=== PATIENT | male | born 1980 | race Caucasian/White ===

== ENCOUNTER 2023-07-23 19:32 | Outpatient (OUT) | payer BC, SELFPAY | END 2023-07-23 19:33 | disposition home or self-care (01) | LOC: SLEEP 19:32 | PROVIDERS: PCP Internal Medicine; Visit Provider Internal Medicine | DX: G47.33 Obstructive sleep apnea (adult) (pediatric) (principal) ==

== ENCOUNTER 2023-08-07 20:49 | Outpatient (OUT) | payer BC, SELFPAY ==
--- OUTSIDE RECORDS SUMMARY | 2023-08-07 20:52 | XMS_ITS | CCD ---
Author Name Unknown Address [address] [place] [address] Organization [facility] Care Team Providers Care Hydraulic Controls Technician Name Role Phone PCP, NONE Unavailable Unavailable JONAS BLEDSOE Unavailable Unavailable ROZINA CHAMBERLAIN Attending Unavailable CHARLES CUEVA Referring Unavailable CHARLES CUEVA Primary Care Unavailable Charles Cueva DO Primary Care Provider [phone] Medications Current Medications Medication Drug Class(es) Dates Sig (Normalized) Sig (Original) amitriptyline hydrochloride 10 mg oral tablet (1 source) Tricyclic Antidepressant Start: 08-07-2023 amitriptyline (ELAVIL) 10 mg tablet Indications: Fibromyalgia One capsule at 8 PM each night 30 tablet 5 08/07/2023 Active Start: 08-07-2023 amitriptyline (ELAVIL) 10 mg tablet Indications: Fibromyalgia One capsule at 8 PM each night 30 tablet 5 08/07/2023 Active fluticasone propionate 0.05 mg/actuat metered dose nasal spray (1 source) Corticosteroid fluticasone propionate (FLONASE) 50 mcg/actuation nasal spray Administer into each nostril daily. 0 Active ibuprofen 200 mg oral capsule (1 source) Nonsteroidal Anti-inflammatory Drug ibuprofen 200 mg capsule Take 800 mg by mouth. 0 Active loratadine 10 mg oral tablet (1 source) loratadine (CLARITIN) 10 mg tablet phentermine hydrochloride 37.5 mg oral capsule (1 source) Sympathomimetic Amine Anorectic Start: 023 take 1 capsule by mouth once daily before breakfast phentermine 37.5 MG capsule Indications: Morbid obesity (CMS-HCC) Take 1 capsule (37.5 mg total) by mouth every morning before breakfast. 30 capsule 0 07/19/2023 Active tiZANidine 2 mg oral tablet (1 source) Central alpha-2 Adrenergic Agonist Start: tiZANidine (ZANAFLEX) 2 mg tablet Indications: Fibromyalgia One tab at 8:00 p.m.each night 30 tablet 5 08/07/2023 Active Start: 08-07-2023 tiZANidine (ZA NAFLEX) 2 mg tablet Indications: Fibromyalgia One tab at 8:00 p.m.each night 30 tablet 5 08/07/2023 Active Problems Active Problems Problem Classification Problem Date Documented Date Episodic/Chronic Esophageal disorders (1 source) Gastro-esophageal reflux disease with esophagitis; Translations: [GERD with esophagitis] Onset: 03-04-2019 06-14-2023 Chronic Esophageal disorders (1 source) Esophageal disorders Onset: 12-03-2017 Nonspecific chest pain (1 source) Chest pain, unspecified; Translations: [Chest pain, unspecified] Onset: 12-03-2017 Episodic Other connective tissue disease (1 source) Fibromyalgia; Translations: [Fibromyalgia] Onset: 08-07-2023 Episodic Other connective tissue disease (2 sources) Fibromyalgia; Translations: [Fibromyalgia] Onset: 08-07-2023 08-07-2023 Episodic Other non-traumatic joint disorders (1 source) Pain in unspecified joint; Translations: [Pain in unspecified joint] Onset: 08-07-2023 Episodic Other non-traumatic joint disorders (2 sources) Multiple joint pain; Translations: [Pain in unspecified joint] Onset: 08-07-2023 08-07-2023 Episodic Other upper respiratory disease (1 source) Allergic rhinitis; Translations: [Allergic rhinitis, unspecified] Onset: 03-11-2016 06-14-2023 Chronic Residual codes; unclassified (1 source) Obstructive sleep apnea syndrome; Translations: [Obstructive sleep apnea (adult) (pediatric)] Onset: 02-18-2019 06-14-2023 Chronic Unclassified (1 source) Sleep apnea, unspecified / G47.30(ICD-10) Onset: 12-03-2017 Unclassified (2 sources) Nicotine dependence, cigarettes, uncomplicated / F17.210(ICD-10) Onset: 12-03-2017 Unclassified (2 sources) Chest pain, unspecified / R07.9(ICD-10) Onset: 12-03-2017 Unclassified (1 source) Morbid (severe) obesity due to excess calories / E66.01(ICD-10) Onset: 12-03-2017 Unclassified (1 source) Other chest pain / R07.89(ICD-10) Onset: 12-03-2017 Unclassified (1 source) Allergic rhinitis, unspecified / J30.9(ICD-10) Onset: 12-03-2017 Unclassified (1 source) 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 / Z79.899(ICD-10) Onset: 12-03-2017 Unclassified (1 source) Body mass index (BMI) 45.0-49.9, adult / Z68.42(ICD-10) Onset: 12-03-2017 Past or Other Problems Problem Classification Problem Date Documented Da te Episodic/Chronic Malaise and fatigue (1 source) Fatigue; Translations: [Other fatigue] Onset: 03-09-2016 06-14-2023 Episodic Mood disorders (1 source) Mood disorders Onset: 07-19-2023 07-19-2023 Other connective tissue disease (1 source) Internal impingement of right shoulder; Translations: [Impingement syndrome of right shoulder] Onset: 07-18-2019 06-14-2023 Episodic Other connective tissue disease (1 source) Right rotator cuff syndrome; Translations: [Unspecified rotator cuff tear or rupture of right shoulder, not specified as traumatic] Onset: 07-18-2019 06-14-2023 Episodic Syncope (1 source) Syncope and collapse; Translations: [Syncope and collapse] Onset: 04-05-2016 06-14-2023 Episodic Results Test Name Value Interpretation Reference Range Facility OBSOLETEon 02-12-2020 OBSOLETE Refill (FAMA) -------- ABISAI TORIBIO ([id number]) 1980 M Date Time Provider Department 02/12/20 [facility] BAILEY) [facility] During your visit today, we recorded the following information about you: Nemo Heaton [facility] 02/12/2020 8:53 AM Signed Patient has been identified by name and date of : Yes Pending Prescriptions Disp Refills CYCLOBENZAPRINE 10 MG TABLET 10 tablet 0 Sig: Take 1 tablet by mouth at bedtime as needed for up to 10 days. DELFINA: No BUSPIRONE 5 MG TABLET 90 tablet 0 Sig: Take 1 tablet by mouth three times daily as needed (For anxiety). DELFINA: No RX INSTRUCTIONS: Patient aware RX will be sent to pharmacy. No need to notify patient. Nemo Heaton [facility] Kitty Bailey PA-C 02/12/2020 9:20 AM Signed Med filed. Please schedule f/u. GREGG Rowan [facility] 02/12/2020 1:43 PM Signed Left message for patient to return call. Please advise of below message. Rachelle Trish [facility] 02/12/2020 2:01 PM Signed Patient returned call and was notified of written directive He expressed clear understanding and wcb to schedule appointment Allergies As of Date: 02/12/2020 (No Known Allergies) Date Reviewed: 12/02/2019 Reviewed by: Angie Bailey (Pa) - Fully Assessed Reason for Visit: Refill Request [94] Visit Diagnoses:Internal impingement of right shoulder [M75.41] Rotator cuff syndrome of right shoulder [M75.101] Anxiety [F41.9] Order(s):cyclobenzaprine (FLEXERIL) 10 mg tabletTake 1 tablet by mouth at bedtime as needed for up to 10 days.Disp: 10 tabletRfl: 0 busPIRone (BUSPAR) 5 mg tabletTake 1 tablet by mouth three times daily as needed (For anxiety).Disp: 90 tabletRfl: 0 Prescriptions as of 02/12/2020 Sig: CYCLOBENZAPRINE 10 MG TABLET Take 1 tablet by mouth at bed* BUSPIRONE 5 MG TABLET Take 1 tablet by mouth three * DIPHENHYDRAMINE-ANTACID- LIDOC* Take 5-10 mL by mouth three t* IBUPROFEN 200 MG CAPSULE Take 800 mg by mouth. PANTOPRAZOLE 40 MG TABLET,DEL* Take 1 tablet by mouth once d* Patient not taking: Reported on 08/12/2019 RANITIDINE 150 MG TABLET Take 150 mg by mouth daily at* FLONASE NASAL Use in the nose once daily. Problem List As Of Date 02/12/2020 Noted Resolved ISRRAEL (obstructive sleep apnea) [G47.33] 02/18/2019 GERD with esophagitis [K21.0] 03/04/2019 SOB (shortness of breath) [R06.02] 03/24/2019 Internal impingement of right shoulder [M75.41] 07/18/2019 Rotator cuff syndrome of right shoulder [M75.10*07/18/2019 Prescriptions ordered this encounter Disp Refills Start End CYCLOBENZAPRINE 10 MG TABLET 10 t* 0 02/12/2020 02/22/2020 Route: ORAL Sig: Take 1 tablet by mouth at bedtime as needed for up to 10 days. BUSPIRONE 5 MG TABLET 90 t* 0 02/12/2020 Route: ORAL Sig: Take 1 tablet by mouth three times daily as needed (For anxiety). Medications Discontinued During This Encounter cyclobenzaprine (FLEXERIL) 10 mg tab* 10 t* 0 11/30/2019 02/12/2020 Route: ORAL Sig: Take 1 tablet by mouth at bedtime as needed for up to 10 days. Disc: Reason for discontinue is not on file. busPIRone (BUSPAR) 5 mg tablet 90 t* 0 12/02/2019 02/12/2020 Route: ORAL Sig: Take 1 tablet by mouth three times daily as needed (For anxiety). Disc: Reason for discontinue is not on file. Encounter Status:Closed by ANGIE BAILEY on 02/12/20 [facility] PROGRESSon 12-02-2019 PROGRESS HNO ID: [id number] Author: Angie Braswell) Service: ? Author Type: Physician Loader [employer] Type: Progress Notes Filed: 12/02/2019 11:53 AM Note Text: This Team Access Model visit is a phone encounter. It required patient-provider interaction for the medical decision making as documented below. HPI: Concerns with anxiety. States he gets very anxious, irritable. Has worsened since COVID pandemic, had to get daughter tested for COVID, not working like usual, staying home. States he has gotten so worked up that he got dizzy and almost passed out. Has had issues with anxiety in the past, states he was prescribed something by his PCP in [place], daily medication, does not remember what it was. Chart review reveals prior Buspar and Ativan Rx from PCP, similar episodes described in 2016. Remembers that Buspar worked well and he would take it as needed for panic attacks. Plan to restart today. Has consults to [facility] and psychiatry if medication does not help as expected or if he would like additional support. Denies SI/HI. Exam: No camera available. Able to speak in full sentences in no apparent distress, is appropriate, normal speech and judgment. A/P: 1. Anxiety- restart Buspar TID PRN, he remembers he had success with this in the past. Consults previously placed to [facility] and psychiatry. Encouraged to gather these resources in case he would like additional support. He is agreeable to this plan, f/u as needed. All questions answered. I spent 25 minutes in the visit, with more than 50% of the total time of the visit in counseling / coordination of care. Angie Bailey PA-C [facility] 11-30-2019 [facility] -------- ABISAI TORIBIO ([id number]) 1980 M Date Time Provider Department 11/30/19 ANGIE BAILEY) [facility] During your visit today, we recorded the following information about you: Kitty Bailey PA-C 11/30/2019 2:23 PM Signed Was not able to document in previous telephone encounter. Please let patient know that I have sent the medications that were prescribed by Dr. Salcido in the winter for his shoulder pain. One is an anti-inflammatory that can be taken daily as prescribed- he should not take any other NSAIDs while taking this including ibuprofen, Motrin, Aleve, Advil, etc. The muscle relaxer (Flexeril) can be taken as needed at night, may cause drowsiness, do not take before driving. Can also use ice for discomfort and should try to do the stretches and exercises that he learned at PT. GREGG Rowan RN 11/30/2019 2:28 PM Signed Unable to contact patient, left message to call back. Angie Perez 11/30/2019 3:36 PM Signed Call received and message given. Had contacted Dr Medina office and mediation had already been sent. Made a phone appointment as request for anxiety. Allergies As of Date: 11/30/2019 (No Known Allergies) Date Reviewed: 08/12/2019 Reviewed by: Suha Manrique - Fully Assessed Reason for Visit: Patient Update [1234] Prescriptions as of 11/30/2019 Sig: CYCLOBENZAPRINE 10 MG TABLET Take 1 tablet by mouth at bed* DICLOFENAC SODIUM 75 MG TABLE* Take 1 tablet by mouth twice * DIPHENHYDRAMINE-ANTACID- LIDOC* Take 5-10 mL by mouth three t* IBUPROFEN 200 MG CAPSULE Take 800 mg by mouth. PANTOPRAZOLE 40 MG TABLET,DEL* Take 1 tablet by mouth once d* Patient not taking: Reported on 08/12/2019 RANITIDINE 150 MG TABLET Take 150 mg by mouth daily at* FLONASE NASAL Use in the nose once daily. Problem List As Of Date 11/30/2019 Noted Resolved ISRRAEL (obstructive sleep apnea) [G47.33] 02/18/2019 GERD with esophagitis [K21.0] 03/04/2019 SOB (shortness of breath) [R06.02] 03/24/2019 Internal impingement of right shoulder [M75.41] 07/18/2019 Rotator cuff syndrome of right shoulder [M75.10*07/18/2019 Encounter Status:Closed by JESSICA CHOI on 11/30/19 Normal [facility] Group A Strep by PCRon 08-13 GAS Specimen Source Throat Swab Normal [facility] Comment on above: Performed By: #### G ASPCR ####[facility] [address] [place], [place] [phone] Group A Strep PCR Negative Normal [facility] Comment on above: Result Comment: This test was developed and its performance characteristics determined by [facility]'s [facility] [place] ([facility]). It has not been cleared or approved by the FDA. [facility] is regulated under CLIA as qualified to perform high complexity testing. This test is used for clinical purposes. It should not be regarded as investigational or for research. Performed By: #### G [facility] ####[facility] [place], [place] [phone] CNOVon 08-12-2019 CNOV Office Visit (EXPM[facility] ) -------- ABISAI TORIBIO ([id number]) 1980 M Date Time Provider Department 08/12/19 5:10 PM LUZ MARINA TURNER (AYE) [facility] During your visit today, we recorded the following information about you: Temperature Pulse Blood pressure Weight 98 degrees 65/minute 120/80 149.7 kg Luz Marina Turner APRN.CNP 08/12/2019 6:59 PM Signed Subjective The history is provided by the patient. Sore Throat This is a new problem. The current episode started yesterday. The problem has been gradually worsening. The pain is worse on the left side. There has been no fever. The pain is moderate. Associated symptoms include congestion, ear pain (left ear), swollen glands and trouble swallowing. Pertinent negatives include no abdominal pain, coughing, diarrhea, shortness of breath or vomiting. He has had exposure to strep and mono. He has tried acetaminophen for the symptoms. The treatment provided mild relief. PAST MEDICAL HISTORY Diagnosis Date - HTN (hypertension) - Migraine - Sleep apnea Review of Systems Constitutional: Negative for chills, diaphoresis, fever and malaise/fatigue. HENT: Positive for congestion, ear pain (left ear), sinus pain, sore throat and trouble swallowing. Respiratory: Negative for cough, shortness of breath and wheezing. Gastrointestinal: Negative for abdominal pain, blood in stool, constipation, diarrhea, nausea and vomiting. Skin: Negative. BP 120/80 (BP Site: Right Arm, BP Position: Sitting, BP Cuff Size: Large Adult) Pulse 65 Temp 36.7 ?C (98 ?F) (Temporal) Wt (!) 149.7 kg (330 lb) SpO2 96% BMI 43.54 kg/m? Objective Physical Exam Constitutional: He is oriented to person, place, and time and well-developed, well-nourished, and in no distress. HENT: Head: Normocephalic and atraumatic. Right Ear: Tympanic membrane, external ear and ear canal normal. Left Ear: Tympanic membrane, external ear and ear canal normal. Nose: Nose normal. Mouth/Throat: Mucous membranes are normal. Posterior oropharyngeal edema and posterior oropharyngeal erythema present. No oropharyngeal exudate or tonsillar abscesses. Neck: Normal range of motion. Neck supple. Cardiovascular: Normal rate, regular rhythm and normal heart sounds. Pulmonary/Chest: Effort normal and breath sounds normal. Abdominal: Soft. Bowel sounds are normal. Musculoskeletal: Normal range of motion. Neurological: He is alert and oriented to person, place, and time. Skin: Skin is warm and dry. ASSESSMENT/PLAN: 1. Sore throat - ICD9: 462, ICD10: J02.9 - Discussed supportive care treatment with fluids, rest and analgesia. - RAPID STREP TEST B/O negative - GROUP A STREPTOCOCCUS BY PCR - DIPHENHYDRAMINE-ANTACID- LIDOCAINE ([facility]) Encourage icy/popsicles salt water gargles Patient instructed to follow up with their primary care provider or to return if symptoms don't improve or worsens Discharge instructions given verbally and printed for patient and/or family who verbalized understanding. Luz Marina Turner APRN.AYE Turner APRN.AYE 08/12/2019 5:55 PM Signed How can I tell if my sore throat is caused by a virus or strep throat?It is hard to tell the difference. But there are some clues to look for. People who have a sore throat caused by a virus usually have other symptoms, such as: ?A runny nose ?A stuffed-up chest ?Itchy or red eyes ?Cough ?A raspy (hoarse) voice ?Pain in the roof of the mouth People who have a sore throat caused by strep throat do not usually have a cough, runny nose, or itchy or red eyes. But they might have: ?Severe throat pain ?Fever (temperature higher than 100.4?F or 38?C) ?Swollen glands in the neck What can I do to feel better?If you want some relief from the pain of sore throat, you can take pain medicine over the counter such as tylenol or motrin.. Throat sprays such as chloraseptic, sucking on cough drops or candy may sooth the pain. Some people feel relief if they gargle with salt water. Referring Provider: SELF [200] Allergies As of Date: 08/12/2019 (No Known Allergies) Date Reviewed: 08/12/2019 Reviewed by: Suha Manrique - Fully Assessed Reason for Visit: Sore Throat [200] Cmt: 2 days Ear Pain [817] Cmt: left Primary Visit Diagnosis:Sore throat [J02.9] Order(s):RAPID STREP TEST B/O [3457178] Order #: [id number] GROUP A STREPTOCOCCUS BY PCR [SQGASPCR] Order #: [id number] kaimqmjtlyAJPER-priwtn-r idocaine (BMX 1:1:1) 1:1:1 liqdTake 5-10 mL by mouth three times daily.Disp: 120 BottleRfl: 0 Prescriptions as of 08/12/2019 Sig: FLONASE NASAL Use in the nose once daily. DIPHENHYDRAMINE-ANTACID- LIDOC* Take 5-10 mL by mouth three t* IBUPROFEN 200 MG CAPSULE Take 800 mg by mouth. PANTOPRAZOLE 40 MG TABLET,DEL* Take 1 tablet by mouth once d* Patient not taking: Reported on 08/12/2019 RANITIDINE 150 MG TABLET Take 150 mg by mouth daily at* Problem List As Of Date 08/12/2019 Noted Resolved ISRRAEL (obstructive sleep apnea) [G47.33] 02/18/2019 GERD with esophagitis [K21.0] 03/04/2019 SOB (shortness of breath) [R06.02] 03/24/2019 Internal impingement of right shoulder [M75.41] 07/18/2019 Rotator cuff syndrome of right shoulder [M75.10*07/18/2019 Other instructions from your clinician: How can I tell if my sore throat is caused by a virus or strep throat?It is hard to tell the difference. But there are some clues to look for. People who have a sore throat caused by a virus usually have other symptoms, such as: ?A runny nose ?A stuffed-up chest ?Itchy or red eyes ?Cough ?A raspy (hoarse) voice ?Pain in the roof of the mouth People who have a sore throat caused by strep throat do not usually have a cough, runny nose, or itchy or red eyes. But they might have: ?Severe throat pain ?Fever (temperature higher than 100.4?F or 38?C) ?Swollen glands in the neck What can I do to feel better?If you want some relief from the pain of sore throat, you can take pain medicine over the counter such as tylenol or motrin.. Throat sprays such as chloraseptic, sucking on cough drops or candy may sooth the pain. Some people feel relief if they gargle with salt water. Prescriptions ordered this encounter Disp Refills Start End DIPHENHYDRAMINE-ANTACID- LIDOCAINE (C* 120 * 0 08/12/2019 Route: ORAL Sig: Take 5-10 mL by mouth three times daily. Disposition: Return if symptoms worsen or fail to improve. Follow-up and Disposition History Recorded Encounter Status:Closed by LUZ MARINA TURNER on 08/12/19 [facility] PROGRESSon 08-12-2019 PROGRESS HNO ID: [id number] Author: Luz Marina Turner Service: ? Author Type: Nurse Practitioner Type: Progress Notes Filed: 08/12/2019 6:59 PM Note Text: Subjective The history is provided by the patient. Sore Throat This is a new problem. The current episode started yesterday. The problem has been gradually worsening. The pain is worse on the left side. There has been no fever. The pain is moderate. Associated symptoms include congestion, ear pain (left ear), swollen glands and trouble swallowing. Pertinent negatives include no abdominal pain, coughing, diarrhea, shortness of breath or vomiting. He has had exposure to strep and mono. He has tried acetaminophen for the symptoms. The treatment provided mild relief. PAST MEDICAL HISTORY Diagnosis Date - HTN (hypertension) - Migraine - Sleep apnea Review of Systems Constitutional: Negative for chills, diaphoresis, fever and malaise/fatigue. HENT: Positive for congestion, ear pain (left ear), sinus pain, sore throat and trouble swallowing. Respiratory: Negative for cough, shortness of breath and wheezing. Gastrointestinal: Negative for abdominal pain, blood in stool, constipation, diarrhea, nausea and vomiting. Skin: Negative. BP 120/80 (BP Site: Right Arm, BP Position: Sitting, BP Cuff Size: Large Adult) Pulse 65 Temp 36.7 ?C (98 ?F) (Temporal) Wt (!) 149.7 kg (330 lb) SpO2 96% BMI 43.54 kg/m? Objective Physical Exam Constitutional: He is oriented to person, place, and time and well-developed, well-nourished, and in no distress. HENT: Head: Normocephalic and atraumatic. Right Ear: Tympanic membrane, external ear and ear canal normal. Left Ear: Tympanic membrane, external ear and ear canal normal. Nose: Nose normal. Mouth/Throat: Mucous membranes are normal. Posterior oropharyngeal edema and posterior oropharyngeal erythema present. No oropharyngeal exudate or tonsillar abscesses. Neck: Normal range of motion. Neck supple. Cardiovascular: Normal rate, regular rhythm and normal heart sounds. Pulmonary/Chest: Effort normal and breath sounds normal. Abdominal: Soft. Bowel sounds are normal. Musculoskeletal: Normal range of motion. Neurological: He is alert and oriented to person, place, and time. Skin: Skin is warm and dry. ASSESSMENT/PLAN: 1. Sore throat - ICD9: 462, ICD10: J02.9 - Discussed supportive care treatment with fluids, rest and analgesia. - RAPID STREP TEST B/O negative - GROUP A STREPTOCOCCUS BY PCR - DIPHENHYDRAMINE-ANTACID- LIDOCAINE ([facility]) Encourage icy/popsicles salt water gargles Patient instructed to follow up with their primary care provider or to return if symptoms don't improve or worsens Discharge instructions given verbally and printed for patient and/or family who verbalized understanding. Luz Marina Turner APRN.LEAD TEACHER Normal [facility] PROGRESSon 07-18-2019 PROGRESS HNO ID: [id number] Author: Ajith Salcido Service: ? Author Type: Physician Type: Progress Notes Filed: 07/18/2019 3:22 PM Note Text: [facility]ate [facility] DEPARTMENT OF SPORTS MEDICINE [facility] Sports Medicine Note: Pt is a 39 year old male here for right shoulder pain. He is accompanied by: no one. He c/o burning and stinging pain about the anterior, posterior and lateral aspect of approximately 1 week duration. Mechanism of injury: no known injury Pain is 10/10 in severity at rest, with pain escalating to 10/10 at its worst. The pain is exacerbated by overhead activities, reaching and sleeping. Pain is relieved with ice. He denies proximal radiation. He complains of distal radiation to the fingers He reports numbness or tingling. He denies popping, clicking, catching, grinding, or instability. Previous treatments have included xray, OTC medicaiton, ice/heat and chiropractor. He reports swelling and warmth. Medications tried (Including anti-inflammatories): ibuprofen Prior injury: none Occupation: teacher Activity levels: recreational Has trouble with sleeping bc of pain at night. He has had chiropractic treatment, ice has helped sx. Pain located anterior, lateral and posterior, radiates down the arm. Sweats at night. Patient's problem list, history, social history reviewed and updated in [facility]. PAST MEDICAL HISTORY Diagnosis Date - HTN (hypertension) - Migraine - Sleep apnea Social History Tobacco Use - Smoking status: Current Some Day Smoker Types: Cigarettes - Smokeless tobacco: Never Used - Tobacco comment: Occasional cigarette Substance Use Topics - Alcohol use: Not Currently Frequency: Never - Drug use: Never FAMILY HISTORY Problem Relation Age of Onset - Diabetes Mother - Diabetes Maternal Grandmother CABG age 60's - Diabetes Maternal Grandfather - Cancer Maternal Grandfather 70 colon - Cancer Paternal Grandfather 60 colon - other (colon polyps) Father - other (colon polyps) Brother There were no vitals taken for this visit. Review Of Systems GENERAL:No weight loss, malaise or fevers HEENT:Negative for frequent or significant headaches, No changes in hearing or vision, no nose bleeds or other nasal problems NECK:Negative for lumps, goiter, pain and significant neck swelling RESPIRATORY: Negative for cough, hemoptysis, wheezing or shortness of breath CARDIOVASCULAR: Negative for chest pain, leg swelling or palpitations GASTROINTESTINAL: No nausea, vomiting, or diarrhea GENITOURINARY: No history of dysuria, frequency or incontinence MUSCULOSKELETAL: See HPI NEUROLOGIC:See HPI SKIN:Negative for lesions, rash, and itching PSYCHIATRIC: Negative for sleep disturbance, mood disorder and recent psychosocial stressors. HEMATOLOGIC/LYMPHATIC/IM MUNOLOGIC:Negative for prolonged bleeding, bruising easily or swollen nodes Physical Exam: General: Appears stated age, well built, in no apparent distress. Psychiatric: Mood and affect appropriate. Alert and oriented x 3 without evidence of abnormal respiratory effort. Musculoskeletal Exam: Gait and Station WNL. Neck: FROM without pain, no TTP over spinous processes, strength 5/5 with neck rotation b/l. Spurlings' test negative. Inspection: No deformity, no muscular atrophy, no ecchymosis. Palpation: No TTP over the clavicle, acromion, AC or SC joint. Mild TTP over supraspinatus attachment. No TTP over bicipital groove. ROM: 175/T4/50 b/l. Strength: 4/5 on R with abduction, 5/5 on R. Special: Mild pain with empty Can on R, negative speeds, arreaga, Neers, Inman's, apprehension. Risks, benefits, alternatives and personnel discussed with patient who consents to proceed with a right shoulder subacrominal corticosteroid injection. After a time out, the right shoulder was prepped in the usual sterile manner. A mixed solution of 4 cc of 1% lidocaine +1 cc of Kenalog 40 mg per cc was instilled into the subacromial space. The patient tolerated the procedure well and was given verbal and offered written post injection instructions. I believe I addressed the patient's concerns and questions to his satisfaction prior to leaving the office today. Ajith Salcido MD ASSESSMENT/PLAN: 1. Internal impingement of right shoulder - ICD9: 726.2, ICD10: M75.41 (primary diagnosis) Personal review of x-rays does not reveal any abnormality, patient's nighttime pain along with some weakness with shoulder abduction is consistent with rotator cuff tendinosis, I believe a little bit of bursitis, because he's having trouble with sleeping at night we did provide an injection for him today to the subacromial bursa, also provided anti-inflammatory medications to be taken twice daily, will avoid chronic use because of GERD, will take for 3 weeks. Also provided with muscle relaxer to take at night as needed before bed, he understands he can make him sleepy and not to take it before driving or operating machinery. Patient will follow-up in the office in 3-4 weeks, consider advanced diagnostic imaging of symptoms are not improved - CONSULT TO PHYSICAL THERAPY - CYCLOBENZAPRINE 10 MG TABLET - DICLOFENAC SODIUM 75 MG TABLET,DELAYED RELEASE 2. Rotator cuff syndrome of right shoulder - ICD9: 726.10, ICD10: M75.101 - CONSULT TO PHYSICAL THERAPY - CYCLOBENZAPRINE 10 MG TABLET - DICLOFENAC SODIUM 75 MG TABLET,DELAYED RELEASE 3. GERD with esophagitis - ICD9: 530.11, ICD10: K21.0 Avoid nsaids Ajith Salcido MD Normal [facility] XR SHLDR >/=3V AP/GRACE AP/OTH R RTon 07-18-2019 XR SHLDR >/=3V AP/GRACE AP/OTHR RT * * *Final Report* * * DATE OF EXAM: Jul 18 2019 2:47PM AEX [id number] - XR SHLDR >/=3V AP/GRACE AP/OTHR RT / PROCEDURE REASON: ACUTE PAIN RT AHOULDER * * * * Physician Interpretation * * * * RIGHT SHOULDER:3 views 07/18/2019 Indication: Acute pain. No injury. Narrowed acromioclavicular joint. Glenohumeral articulation is normal in width. No erosive changes, fracture or dislocation and no soft tissue calcification to indicate calcific tendinosis. Imaged right ribs are intact. IMPRESSION: No acute bony abnormality. Degenerative change acromioclavicular joint. Hand I Thermal Cutter: MICHELLE Transcribe Date/Time: Jul 18 2019 2:49P Dictated by : LAURENT WOOTEN MD This examination was interpreted and the report reviewed and electronically signed by: LAURENT WOOTEN MD on Jul 18 2019 2:51PM EST [id number] [facility] CNPElma 03-28-2019 CNPN Telephone (CARDBD) -------- ABISAI TORIBIO ([id number]) 1980 M Date Time Provider Department 03/28/19 DEANNE SARAHGERALD JACKSON During your visit today, we recorded the following information about you: Jean Painter 03/28/2019 9:45 AM Signed Fax received from [facility] Re: Holter report Copy placed in nurse folder Copy sent for scanning Reece Mckeon RN 03/28/2019 10:19 AM Signed Holter 03/24/19 IMPRESSIONS AND FINDINGS: The rhythm was sinus/sinus arrhythmia with brief periods of sinus tachycardia. Maximum HR 120 bpm. Minimum HR 41 bpm. Average 67 bpm. Rare ventricular ectopy in isolation. Rare supraventricular ectopics as singles. A run of atrial/supraventricular tachycardia was the longest at 4 beats and the fastest at rate 150 bpm. Patient listed no symptoms in diary. Event marker not utilized. Reece Epstein, CAITLIN ?03/27/19 ?Hookup Date: 20190324 ?Hookup Time: [id number] ? Recording Duration: 19046 S ? Minimum Heart Rate: 41 BPM ? Minimum Heart Rate Date/Time: 20190325 [id number] ? Maximum Heart Rate: 120 BPM ? Maximum Heart Rate Date/Time: 20190325 [id number] ? Average Heart Rate: 67 BPM ? Longest RR: 1.528 S ? Longest RR DATE/TIME: [id number] ?QRS complexes: 50589 ? Ventricular Ectopics: 28 ? Ventricular Isolated Beats: 28 ? Ventricular Bigeminal Cycles: 0 ? Ventricular Couplets: 0 ? Ventricular Runs: 0 ?Ventricular Beats in Runs: 0 ?Supraventricular Ectopics: 84 ?Supraventricular Isolated Beats: 76 ?Supraventricular Couplets: 0 ?Supraventricular Runs: 2 ? Supraventricular Beats in Runs: 8 ? Longest Supraventricular Run Date/Time: 20190324 ?Fastest Supraventricular Run, Date/Time: 20190324 Message left for pt with results of Holter monitor which was normal. Pt was in sinus rhythm/sinus tach during monitoring. No abnormal heart rhythms. Few beningn early heart beats(PVC's and PAC;'s). Pt had no symptoms while wearing monitor. Will have Dr Simon review. Will call if there are any further recommendations. Reece Simon MD [facility] 03/28/2019 6:08 PM Signed Agree with recommendations communicated to the patient. No further recommendations at this time. Sarah Simon MD [facility] Allergies As of Date: 03/28/2019 (No Known Allergies) Date Reviewed: 03/24/2019 Reviewed by: Reece Mckeon RN - Fully Assessed Reason for Visit: Results [95] Prescriptions as of 03/28/2019 Sig: PERFLUTREN LIPID MICROSPHERES* Inject 1.3 mL intravenously a* IBUPROFEN 200 MG CAPSULE Take 800 mg by mouth. PANTOPRAZOLE 40 MG TABLET,DEL* Take 1 tablet by mouth once d* ZYRTEC-D ORAL Take by mouth once daily. RANITIDINE 150 MG TABLET Take 150 mg by mouth daily at* FLONASE NASAL Use in the nose once daily. Problem List As Of Date 03/28/2019 Noted Resolved ISRRAEL (obstructive sleep apnea) [G47.33] INVALID FOR* GERD with esophagitis [K21.0] INVALID FOR* SOB (shortness of breath) [R06.02] INVALID FOR* Encounter Status:Closed by REECE MCKEON RN on 03/28/19 [facility] 03-24-2019 CNNURSE Nurse Visit (CARDBD) -------- ABISAI TORIBIO ([id number]) 1980 M Date Time Provider Department 03/24/19 1:15 PM NURSE CARD [facility] CARDBD During your visit today, we recorded the following information about you: Ryan Genao, RN, RN 03/24/2019 1:25 PM Signed HOLTER MONITOR PROCEDURE: Chest is cleansed with alcohol Skin prep applied Electrodes place on chest and stress loops secured with tape Fresh battery inserted in monitor Holter monitor secured to patient with waist or shoulder straps Serial number [id number] Patient instructed 1.) Diary documentation 2.) Usage of event button 3.) Maintenance and care of monitor 4.) Safety issues with monitor 5.) Return unit in 24 hours or 48 hours 6.) Call with problems [phone] Patient expresses good verbal understanding of instructions Ryan Genao, RN Referring Provider: SARAH SIMON [[id number]] Allergies As of Date: 03/24/2019 (No Known Allergies) Date Reviewed: 03/24/2019 Reviewed by: Reece Mckeon RN - Fully Assessed Reason for Visit: Holter Monitor Application [261] Visit Diagnoses:SOB (shortness of breath) [R06.02] Chest pain, atypical [R07.89] Order(s):HOLTER MONITOR 24 HOUR [9114232] Order #: [id number] Prescriptions as of 03/24/2019 Sig: PERFLUTREN LIPID MICROSPHERES* Inject 1.3 mL intravenously a* IBUPROFEN 200 MG CAPSULE Take 800 mg by mouth. PANTOPRAZOLE 40 MG TABLET,DEL* Take 1 tablet by mouth once d* ZYRTEC-D ORAL Take by mouth once daily. RANITIDINE 150 MG TABLET Take 150 mg by mouth daily at* FLONASE NASAL Use in the nose once daily. Problem List As Of Date 03/24/2019 Noted Resolved ISRRAEL (obstructive sleep apnea) [G47.33] INVALID FOR* GERD with esophagitis [K21.0] INVALID FOR* SOB (shortness of breath) [R06.02] INVALID FOR* Encounter Status:Closed by RYAN GENAO on 03/24/19 Normal [facility] CNOVon 03-24-2019 CNOV Office Visit (CARDBD ) -------- ABISAI TORIBIO ([id number]) 1980 M Date Time Provider Department 03/24/19 11:20 AM SARAH SIMON During your visit today, we recorded the following information about you: Pulse Blood pressure Weight Height 61/minute 134/78 149.7 kg 1.854 m Sarah Simon MD [facility] 03/24/2019 12:45 PM Signed [facility] [place] Department of Cardiovascular Medicine SECTION OF REGIONAL CARDIOLOGY At [facility] OUTPATIENT VISIT DATE March 24, 2019 OUTPATIENT VISIT TYPE New Patient Abisai Toribio [address] [facility] [address] [phone] (home) PRIMARY CARE PHYSICIAN: Kitty Bailey PA-C [id number] [facility] [id number] Consultation requested by Kitty Bailey PA-C for an opinion regarding Abisai Toribio My final recommendations will be communicated back to the requesting physician by way of shared Medical record or letter to requesting physician via US mail. CC: chest pain and shortness of breath HISTORY OF PRESENT ILLNESS: Abisai Toribio is a 38 year old year old male here today for chest pain and shortness of breath. History of atypical chest pain, GERD, LVH sleep apnea and ex-smoker CLINICAL VISITS: 03/24/19;: Referred for evaluation of SOB, rapid heart beat. Thought related to severe apnea. Sees sleep in [place] and thought everything was okay in treatment of sleep apnea. Weight 330, 6'1. Smoke x 20 yrs. 1/2 ppd . Quitting 1 1/2 smoking. Rare episodes of tachycardia. SOB at rest laying down. Sometimes worse with physical activity. 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 Does exercise ( walking) but not on a consistent basis. Reports having a stress test a years. Recommend a Nuclear stress and surface echo Body habitus not conducive to a stress echo Weight hasn't changed much. Less appeitite in 2 months. No change in weight' Compliant with CPAP which he uses nightly. Wakes up gasping for air 2-x a week. Atypical chest pain . Left and right shoulder and neck at rest. Also notes fatigue. Seen by Kitty GALEANA 02/18/19 Concerns of difficulty swallowing and intermittent problems with breathing. States swallowing difficulties have been ongoing x 2 years, getting worse, both solids and liquids. Takes OTC heartburn medication without relief. Was told to f/u with GI last year, but never made appt. Will refer to GI for EGD. Breathing concern- states he feels like he is gasping for air intermittently throughout the day x 2 years, worse in the past 2 months. Feels like the air won't go down or that his airway gives out . Associated with lightheadedness. Happening daily, worse while at rest. Takes 2-3 minutes to recover. Does not feel it is anxiety related. Follows with sleep medicine- was told that this is not related to ISRRAEL. No hx of asthma or COPD. Former smoker, quit 2 weeks ago. Previously was smoking 1/3 PPD x 20 years. Has seen cardiology in [place], last visit about 2 years ago, had stress testing- states they were monitoring a valve and a minor blockage. Would like to reestablish with cardiology, but not at this time. Episodic lightheadedness - HGB A1C; Future - CBC; Future - TSH BLD; Future - COMP METABOLIC PANEL; Future ? Dysphagia, unspecified type - CONSULT TO GASTROENTEROLOGY ? Breathing difficulty ? ISRRAEL (obstructive sleep apnea) ? Screening for lipoid disorders - LIPID PANEL BASIC; Future ? Screening for diabetes mellitus - HGB A1C; Future ? Other orders - Cancel: ALBUMIN/CREAT RATIO RND UR; Future ? - Labs pending. - Appt with GI scheduled for later today. - Will f/u here in 2 weeks to further discuss concerns. Plan to reestablish with cardiology. - HM reviewed. Seen by Kitty GALEANA 03/04/19 Saw GI and underwent EGD on 02/19/19- reflux esophagitis, small hiatal hernia. Was started on Protonix 40mg daily x 8 weeks. States he has not noticed much of a difference or improvement in difficulty swallowing, but is giving medication more time. As far as episodes of gasping for breath, he states he has noticed this has decreased in frequency as well, last episode 3-4 days ago when before it was daily. States overall he is feeling better. Still needs reestablished with cardiology- states his last visit and stress test was 2 years ago, there was potential thickening of one of his valves or heart chavez, he is unsure which. Admits to occasional chest pains x years. Will refer to cardiology so he has a specialist in the area. Risk Factors of this patient are active smoking and Extreme Obesity. PAST MEDICAL HISTORY PAST MEDICAL HISTORY Diagnosis Date - HTN (hypertension) - Migraine - Sleep apnea PAST SURGICAL HISTORY PAST SURGICAL HISTORY Procedure Laterality Date - HERNIA REPAIR HX 2012 SOCIAL HISTORY Social History Socioeconomic History Marital status: Spouse name: Not on file Number of children: 1 Years of education: Not on file Highest education level: Not on file Occupational History Occupation: TEACHER Employer: [employer] Social Needs Financial resource strain: Not on file Food insecurity: Worry: Not on file Inability: Not on file Transportation needs: Medical: Not on file Non-medical: Not on file Tobacco Use Smoking status: Former Smoker Types: Cigarettes Smokeless tobacco: Never Used Substance and Sexual Activity Alcohol use: Not Currently Frequency: Never Drug use: Never Sexual activity: Not on file Lifestyle Physical activity: Days per week: Not on file Minutes per session: Not on file Stress: Not on file Relationships Social connections: Talks on phone: Not on file Gets together: Not on file Attends latter day service: Not on file Active member of club or organization: Not on file Attends meetings of clubs or organizations: Not on file Relationship status: Not on file Intimate partner violence: Fear of current or ex partner: Not on file Emotionally abused: Not on file Physically abused: Not on file Forced sexual activity: Not on file Other Topics Concerns: Not on file Social History Narrative Not on file FAMILY HISTORY FAMILY HISTORY Problem Relation Age of Onset - Diabetes Mother - Diabetes Maternal Grandmother - Diabetes Maternal Grandfather - Cancer Maternal Grandfather 70 colon - Cancer Paternal Grandfather 60 colon - other (colon polyps) Father - other (colon polyps) Brother CURRENT MEDICATIONS Current Outpatient Medications: Ibuprofen 200 mg cap Take 800 mg by mouth. pantoprazole DR (PROTONIX) 40 mg tablet Take 1 tablet by mouth once daily. cetirizine HCl/pseudoephedrine (ZYRTEC-D ORAL) Take by mouth once daily. ranitidine (ZANTAC) 150 mg tablet Take 150 mg by mouth daily at bedtime. fluticasone propionate (FLONASE NASAL) Use in the nose once daily. No current facility-administered medications for this visit. ALLERGIES No Known Allergies REVIEW OF SYSTEMS: Chest pain Yes, occasional midsternal squeezing to sharp upper left shoulder. May radiate to his neck. Can occur with and without exertion lasting 1 minute. Had similar discomfort in 2016 and had normal stress test Shortness of breath Yes, notices that he is grasping for breath when lying down. Also SOB with exertion. He has been using his CPAP regularly. Notes fatigue with exertion. Symptoms began 6 months ago. Bleeding No Dizziness No Syncope Yes, last occurred in 2016. At that time he felt lightheaded. He went to get a drink of water and had syncope. Palpations Yes, described as a fluttering or muscle movement. May occur with heavier exertional activity. Edema None on exam, but notes mild left leg edema at the end of the day 10 systems reviewed and are negative with the exception of pertinent positives described in HPI GENERAL: Negative for: Weight loss or gain, Fever or Chills, Weakness and Sleep difficulties. HEENT: Negative for: Headache, Impaired Vision, Glasses, Hearing Impairment, Ringing in Ears, Nosebleeds, Poor dental care, Bleeding Gums, Dentures NECK: Negative for: Swelling, Pain, Stiffness RESPIRATORY: Negative for: Cough, Blood in Sputum, Shortness of breath, Wheezing, Apnea GASTROINTESTINAL: Negative for: Trouble swallowing, Heartburn, Change in bowel habits, Blood in stool, Dark black stools MUSCULOSKELETAL: Negative for: Muscle or joint pain, Stiffness , Joint swelling NEUROLOGIC/PSYCHIATRIC: Negative for: Weakness, Paralysis, Numbness, Tingling, Tremor, Nervousness, Depressed mood, Memory loss SKIN: Negative for: Rashes, Itching HEMATOLOGICAL/LYMPHATIC: Negative for: Easy bruising , Easy bleeding ENDOCRINE: Negative for: Heat or cold intolerance, Excessive sweating, Frequent urination, Frequent thirst PHYSICAL EXAMINATION: Last 3 Encounter BP Readings: Date: BP: 03/04/2019 130/80 02/19/2019 122/69 02/18/2019 135/79 Last 3 Encounter Wt Readings: Date: Wt: 03/04/2019 151.1 kg (333 lb 3.2 oz) 02/18/2019 149.2 kg (329 lb) 02/18/2019 148.6 kg (327 lb 9.6 oz) Last 3 Encounter Pulse Readings: Date: Pulse: 03/04/2019 63 02/19/2019 60 02/18/2019 62 BP 134/78 Pulse 61 Ht 6' 1 (1.85m) Wt 330 lb (149.7kg) BMI 43.55 kg/(m2). GENERAL: alert, cooperative, pleasant, in no acute distress SKIN: warm, dry, no rash. HEENT: NCAT, sclerae anicteric, oval pharynx clear. NECK: supple, no palpable masses, JVP ~7cm H20, carotids 2+ bilaterally with no carotid bruits. CARDIAC: Regular rate and rhythm with no rubs, murmurs, or gallops CHEST: Normal respiratory efforts, lungs clear to auscultation bilaterally. ABDOMEN: (+) bowel sounds, nontender, nondistended, no hepatosplenomegaly, no abdominal bruits EXTREMITIES: no lower extremity edema bilaterally. DP pulses 2+ bilaterally. Femoral pulses 3+ bilaterally with no bruits. No cyanosis. NEURO: Alert and oriented x 3. Grossly normal. Moves all 4 extremities. CARDIAC TESTING: Echo 04/04/16([facility]) IVSd: 1.2 cm? LVIDd: 3.5 cm ? LVIDs: 2.3 cm ? LVPWd: 0.96 cm FS: 34.5 %? Ao root diam: 3.4 cm ? Ao root area: 8.9 cm2 ? LA dimension: 4.1 cm Doppler Measurements AND Calculations MV E max michaela: 74.5 cm/sec? MV dec time: 0.16 sec MV A max michaela: 62.7 cm/sec MV E/A: 1.2 Ao V2 max: 111.3 cm/sec? LV V1 max P.4 mmHg Ao max P.0 mmHg? LV V1 max: 91.8 cm/sec PA V2 max: 123.5 cm/sec PA max P.1 mmHg Study 2D M-Mode, Doppler and Color Flow with Contrast. The left ventricle is normal in size. Mild asymmetric LVH/increased wall thickness is noted. No LVOT obstruction. A contrast agent was used for left ventricular opacification. Normal left ventricular systolic function is noted. Estimated left ventricular ejection fraction is 60%. No regional wall motion abnormalities noted. The right ventricle is normal in size and function. The left atrium is normal in size. Left Atrial Volume Index 19.4 ml/m2. The right atrium is normal in size. Intact atrial septum. The mitral valve is normal in structure and function. There is no mitral regurgitation noted. The tricuspid valve is normal in structure and function. The aortic valve opens well. The aortic valve is trileaflet. No Aortic Stenosis. No aortic regurgitation is present. The pulmonic valve is normal in structure and function. Trace pulmonic valvular regurgitation. The aortic root is normal size. There is no pericardial effusion. Normal diastolic function. Summary The left ventricle is normal in size. Mild asymmetric LVH/increased wall thickness is noted. A contrast agent was used for left ventricular opacification. Estimated left ventricular ejection fraction is 60%. Normal left ventricular systolic function is noted. Normal diastolic function. No LVOT obstruction. Nuclear Stress Test 04/05/16([facility]) The patient was stressed on a treadmill where they attained a maximum ? heart rate of 174 beats per minute which is 93% of the maximum ? predicted value. No evidence of reversible myocardial ischemia. Low risk for ischemia. ? Carotid Ultrasound 04/04/16([facility]) Right: Plaque with no significant ICA spectral Doppler or color flow disturbances; ICA 86/12 cm/sec.??Antegrade vertebral artery flow. Left: Plaque with no significant ICA spectral Doppler or color flow disturbances; ICA 145/28 cm/sec.??Antegrade vertebral artery flow. Conclusions: BILATERAL:??Plaque without significant stenosis (<50%) of the internal carotid artery.??Antegrade vertebral artery flow. LABS: Cholesterol, Total (mg/dL) Date Value 02/18/2019 164 HDL Cholesterol (mg/dL) Date Value 02/18/2019 34 LDL Cholesterol (mg/dL) Date Value 02/18/2019 98 Triglyceride (mg/dL) Date Value 02/18/2019 158 No results found for: INR Hemoglobin (g/dL) Date Value 02/18/2019 16.7 Hematocrit (%) Date Value 02/18/2019 50.0 WBC (k/uL) Date Value 02/18/2019 5.83 Platelet Count (k/uL) Date Value 02/18/2019 240 No results found for: MG AST (U/L) Date Value 02/18/2019 25 ALT (U/L) Date Value 02/18/2019 33 , No results found for: CK, TSH (uU/mL) Date Value 02/18/2019 0.484 , No results found for: PBNP, Hemoglobin A1C (%) Date Value 02/18/2019 5.3 , Glucose (mg/dL) Date Value 02/18/2019 84 Potassium (mmol/L) Date Value 02/18/2019 4.1 Sodium (mmol/L) Date Value 02/18/2019 139 Chloride (mmol/L) Date Value 02/18/2019 102 CO2 (mmol/L) Date Value 02/18/2019 23 Creatinine (mg/dL) Date Value 02/18/2019 0.85 BUN (mg/dL) Date Value 02/18/2019 13 Anion Gap (mmol/L) Date Value 02/18/2019 14 Calcium (mg/dL) Date Value 02/18/2019 9.6 and No components found for: DIG ASSESSMENT/PLAN: Abisai Toribio 38 year old male was seen today in Cardiology SOB, Chest pain, tachycardia - periods awakening SOB ECHO Stress Nuclear 24 hour monitor PFTs follow up in [place] in 6-8 weeks This note was partially generated using [employer] voice recognition system, and there may be some incorrect words, spellings, and punctuation that were not noted in checking the note before saving. Sarah Simon MD [facility] Department of Cardiovascular Medicine [address] [place] [address]/ [address] [place] [address]. [id number] cc: Kitty Bailey PA-C [id number] [facility] [id number] Sarah Simon MD [facility] 03/24/2019 12:44 PM Signed ECHO Stress Nuclear 24 hour monitor PFTs follow up in [place] 6-8 weeks Sarah Simon MD [facility] Referring Provider: ANGIE BAILEY (KERVIN) [[id number]] Allergies As of Date: 03/24/2019 (No Known Allergies) Date Reviewed: 03/24/2019 Reviewed by: Reece Mckeon RN - Fully Assessed Reason for Visit: Breathing Problem [17] Chest Pain [21] Primary Visit Diagnosis:SOB (shortness of breath) [R06.02] Other Visit Diagnosis:Chest pain, atypical [R07.89] Order(s):ECG COMPLETE [ECG01] Order #: [id number] FUTURE ECHO [[id number]] Order #: [id number]: 1 FUTURE perflutren lipid microspheres (DEFINITY) 1.1 mg/mL injection (to be provided with echo procedure)Inject 1.3 mL intravenously as directed.Disp: 1.3 mLRfl: 0 HOLTER MONITOR 24 HOUR [[id number]] Order #: [id number] FUTURE EXERCISE STRESS W/NUC IMAGING [0790288] Order #: [id number]: 1 NM CARDIAC PERF STRESS/EXERCISE [1422304] Order #: [id number] FUTURE SPIROMETRY - BASELINE AND POST DILATOR [9240044] Order #: [id number] FUTURE LUNG DIFFUSION CAPACITY (DLCO) [0756004] Order #: [id number] FUTURE Prescriptions as of 03/24/2019 Sig: IBUPROFEN 200 MG CAPSULE Take 800 mg by mouth. PANTOPRAZOLE 40 MG TABLET,DEL* Take 1 tablet by mouth once d* ZYRTEC-D ORAL Take by mouth once daily. RANITIDINE 150 MG TABLET Take 150 mg by mouth daily at* FLONASE NASAL Use in the nose once daily. PERFLUTREN LIPID MICROSPHERES* Inject 1.3 mL intravenously a* Problem List As Of Date 03/24/2019 Noted Resolved ISRRAEL (obstructive sleep apnea) [G47.33] INVALID FOR* GERD with esophagitis [K21.0] INVALID FOR* Other instructions from your clinician: ECHO Stress Nuclear 24 hour monitor PFTs follow up in [place] 6-8 weeks Sarah Simon MD [facility] Prescriptions ordered this encounter Disp Refills Start End PERFLUTREN LIPID MICROSPHERES 1.1 MG* 1.3 * 0 03/24/2019 03/23/2020 Class: In Office Route: INTRAVENOUS Sig: Inject 1.3 mL intravenously as directed. Encounter Status:Closed by SARAH SIMON MD on 03/24/19 Normal [facility] EKG1on 03-24-2019 EKG1 NAME : ABISAI TORIBIO PID : [id number] : 1980 Gender : Male Race : ORD : Procedure Date : Mar 24 2019 11:44:20 Edit Date : Mar 25 2019 20:44:14 Diagnosis:NORMAL SINUS RHYTHM NORMAL ECG Confirmed by SARAH SIMON M.D. ([id number]) on 03/25/2019 8:44:13 PM Ventricular Rate : 61 BPM Atrial Rate : 61 BPM P-R Interval : 154 ms QRS Duration : 78 ms Q-T Interval : 400 ms QTC Calculation(Bazett) : 402 ms P [place] : -2 degrees R [place] : 33 degrees T [place] : 43 degrees Test Reason : Location : 503 : [facility] Overread By : SARAH SIMON M.D. Edited By : SARAH SIMON M.D. Referred By : SARAH SIMON Acquired by : , Normal [facility] HOLTER MONITOR 24 HOURon HOLTER MONITOR 24 HOUR IMPRESSIONS AND FINDINGS: The rhythm was sinus/sinus arrhythmia with brief periods of sinus tachycardia. Maximum HR 120 bpm. Minimum HR 41 bpm. Average 67 bpm. Rare ventricular ectopy in isolation. Rare supraventricular ectopics as singles. A run of atrial/supraventricular tachycardia was the longest at 4 beats and the fastest at rate 150 bpm. Patient listed no symptoms in diary. Event marker not utilized. Reece Epstein, CCT 03/27/19 Brief Interpretation ; Sinus rhythm with sinus arrhythmia ; Sinus tachycardia ; Ventricular ectopy ; Supraventricular ectopy ; atrial/supraventricular tachycardia run(s) Hookup Date: 20190324 Hookup Time: [id number] Recording Duration: 57083 S Minimum Heart Rate: 41 BPM Minimum Heart Rate Date/Time: 20190325 Maximum Heart Rate: 120 BPM Maximum Heart Rate Date/Time: 20190325 Average Heart Rate: 67 BPM Longest RR: 1.528 S Longest RR DATE/TIME: 20190325 QRS complexes: 35911 Ventricular Ectopics: 28 Ventricular Isolated Beats: 28 Ventricular Bigeminal Cycles: 0 Ventricular Couplets: 0 Ventricular Runs: 0 Ventricular Beats in Runs: 0 Supraventricular Ectopics: 84 Supraventricular Isolated Beats: 76 Supraventricular Couplets: 0 Supraventricular Runs: 2 Supraventricular Beats in Runs: 8 Longest Supraventricular Run Date/Time: 20190324 Fastest Supraventricular Run, Date/Time: 20190324 Overreading Physician: SARAH SIMON M.D. See Holter MUSE for ECG strips. Normal [facility] PROGRESSon 03-24-2019 PROGRESS HNO ID: [id number] Author: Ryan StockRn) ERMELINDA Genao Service: ? Author Type: Registered Nurse Type: Progress Notes Filed: 03/24/2019 1:25 PM Note Text: HOLTER MONITOR PROCEDURE: Chest is cleansed with alcohol Skin prep applied Electrodes place on chest and stress loops secured with tape Fresh battery inserted in monitor Holter monitor secured to patient with waist or shoulder straps Serial number [id number] Patient instructed 1.) Diary documentation 2.) Usage of event button 3.) Maintenance and care of monitor 4.) Safety issues with monitor 5.) Return unit in 24 hours or 48 hours 6.) Call with problems [phone] Patient expresses good verbal understanding of instructions Ryan Genao RN Normal [facility] PROGRESSon 03-18-2019 PROGRESS HNO ID: [id number] Author: Sarah Simon Service: ? Author Type: Physician Type: Progress Notes Filed: 03/24/2019 12:45 PM Note Text: [facility] [place] Department of Cardiovascular Medicine SECTION OF REGIONAL CARDIOLOGY At [facility] OUTPATIENT VISIT DATE March 24, 2019 OUTPATIENT VISIT TYPE New Patient Abisai Toribio [address] [facility] [phone] (home) PRIMARY CARE PHYSICIAN: Kitty Bailey PA-C [id number] [facility] [address] Consultation requested by Kitty Bailey PA-C for an opinion regarding Abisai Toribio My final recommendations will be communicated back to the requesting physician by way of shared Medical record or letter to requesting physician via US mail. CC: chest pain and shortness of breath HISTORY OF PRESENT ILLNESS: Abisai Toribio is a 38 year old year old male here today for chest pain and shortness of breath. History of atypical chest pain, GERD, LVH sleep apnea and ex-smoker CLINICAL VISITS: 03/24/19;: Referred for evaluation of SOB, rapid heart beat. Thought related to severe apnea. Sees sleep in [place] and thought everything was okay in treatment of sleep apnea. Weight 330, 6'1. Smoke x 20 yrs. 1/2 ppd . Quitting 1 1/2 smoking. Rare episodes of tachycardia. SOB at rest laying down. Sometimes worse with physical activity. 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 Does exercise ( walking) but not on a consistent basis. Reports having a stress test a years. Recommend a Nuclear stress and surface echo Body habitus not conducive to a stress echo Weight hasn't changed much. Less appeitite in 2 months. No change in weight' Compliant with CPAP which he uses nightly. Wakes up gasping for air 2-x a week. Atypical chest pain . Left and right shoulder and neck at rest. Also notes fatigue. Seen by Kitty GALEANA 02/18/19 Concerns of difficulty swallowing and intermittent problems with breathing. States swallowing difficulties have been ongoing x 2 years, getting worse, both solids and liquids. Takes OTC heartburn medication without relief. Was told to f/u with GI last year, but never made appt. Will refer to GI for EGD. Breathing concern- states he feels like he is gasping for air intermittently throughout the day x 2 years, worse in the past 2 months. Feels like the air won't go down or that his airway gives out . Associated with lightheadedness. Happening daily, worse while at rest. Takes 2-3 minutes to recover. Does not feel it is anxiety related. Follows with sleep medicine- was told that this is not related to ISRRAEL. No hx of asthma or COPD. Former smoker, quit 2 weeks ago. Previously was smoking 1/3 PPD x 20 years. Has seen cardiology in [place], last visit about 2 years ago, had stress testing- states they were monitoring a valve and a minor blockage. Would like to reestablish with cardiology, but not at this time. Episodic lightheadedness - HGB A1C; Future - CBC; Future - TSH BLD; Future - COMP METABOLIC PANEL; Future ? Dysphagia, unspecified type - CONSULT TO GASTROENTEROLOGY ? Breathing difficulty ? ISRRAEL (obstructive sleep apnea) ? Screening for lipoid disorders - LIPID PANEL BASIC; Future ? Screening for diabetes mellitus - HGB A1C; Future ? Other orders - Cancel: ALBUMIN/CREAT RATIO RND UR; Future ? - Labs pending. - Appt with GI scheduled for later today. - Will f/u here in 2 weeks to further discuss concerns. Plan to reestablish with cardiology. - HM reviewed. Seen by Kitty GALEANA 03/04/19 Saw GI and underwent EGD on 02/19/19- reflux esophagitis, small hiatal hernia. Was started on Protonix 40mg daily x 8 weeks. States he has not noticed much of a difference or improvement in difficulty swallowing, but is giving medication more time. As far as episodes of gasping for breath, he states he has noticed this has decreased in frequency as well, last episode 3-4 days ago when before it was daily. States overall he is feeling better. Still needs reestablished with cardiology- states his last visit and stress test was 2 years ago, there was potential thickening of one of his valves or heart chavez, he is unsure which. Admits to occasional chest pains x years. Will refer to cardiology so he has a specialist in the area. Risk Factors of this patient are active smoking and Extreme Obesity. PAST MEDICAL HISTORY PAST MEDICAL HISTORY Diagnosis Date - HTN (hypertension) - Migraine - Sleep apnea PAST SURGICAL HISTORY PAST SURGICAL HISTORY Procedure Laterality Date - HERNIA REPAIR HX 2012 SOCIAL HISTORY Social History Socioeconomic History Marital status: Spouse name: Not on file Number of children: 1 Years of education: Not on file Highest education level: Not on file Occupational History Occupation: TEACHER Employer: [employer] Social Needs Financial resource strain: Not on file Food insecurity: Worry: Not on file Inability: Not on file Transportation needs: Medical: Not on file Non-medical: Not on file Tobacco Use Smoking status: Former Smoker Types: Cigarettes Smokeless tobacco: Never Used Substance and Sexual Activity Alcohol use: Not Currently Frequency: Never Drug use: Never Sexual activity: Not on file Lifestyle Physical activity: Days per week: Not on file Minutes per session: Not on file Stress: Not on file Relationships Social connections: Talks on phone: Not on file Gets together: Not on file Attends latter day service: Not on file Active member of club or organization: Not on file Attends meetings of clubs or organizations: Not on file Relationship status: Not on file Intimate partner violence: Fear of current or ex partner: Not on file Emotionally abused: Not on file Physically abused: Not on file Forced sexual activity: Not on file Other Topics Concerns: Not on file Social History Narrative Not on file FAMILY HISTORY FAMILY HISTORY Problem Relation Age of Onset - Diabetes Mother - Diabetes Maternal Grandmother - Diabetes Maternal Grandfather - Cancer Maternal Grandfather 70 colon - Cancer Paternal Grandfather 60 colon - other (colon polyps) Father - other (colon polyps) Brother CURRENT MEDICATIONS Current Outpatient Medications: Ibuprofen 200 mg cap Take 800 mg by mouth. pantoprazole DR (PROTONIX) 40 mg tablet Take 1 tablet by mouth once daily. cetirizine HCl/pseudoephedrine (ZYRTEC-D ORAL) Take by mouth once daily. ranitidine (ZANTAC) 150 mg tablet Take 150 mg by mouth daily at bedtime. fluticasone propionate (FLONASE NASAL) Use in the nose once daily. No current facility-administered medications for this visit. ALLERGIES No Known Allergies REVIEW OF SYSTEMS: Chest pain Yes, occasional midsternal squeezing to sharp upper left shoulder. May radiate to his neck. Can occur with and without exertion lasting 1 minute. Had similar discomfort in 2016 and had normal stress test Shortness of breath Yes, notices that he is grasping for breath when lying down. Also SOB with exertion. He has been using his CPAP regularly. Notes fatigue with exertion. Symptoms began 6 months ago. Bleeding No Dizziness No Syncope Yes, last occurred in 2016. At that time he felt lightheaded. He went to get a drink of water and had syncope. Palpations Yes, described as a fluttering or muscle movement. May occur with heavier exertional activity. Edema None on exam, but notes mild left leg edema at the end of the day 10 systems reviewed and are negative with the exception of pertinent positives described in HPI GENERAL: Negative for: Weight loss or gain, Fever or Chills, Weakness and Sleep difficulties. HEENT: Negative for: Headache, Impaired Vision, Glasses, Hearing Impairment, Ringing in Ears, Nosebleeds, Poor dental care, Bleeding Gums, Dentures NECK: Negative for: Swelling, Pain, Stiffness RESPIRATORY: Negative for: Cough, Blood in Sputum, Shortness of breath, Wheezing, Apnea GASTROINTESTINAL: Negative for: Trouble swallowing, Heartburn, Change in bowel habits, Blood in stool, Dark black stools MUSCULOSKELETAL: Negative for: Muscle or joint pain, Stiffness , Joint swelling NEUROLOGIC/PSYCHIATRIC: Negative for: Weakness, Paralysis, Numbness, Tingling, Tremor, Nervousness, Depressed mood, Memory loss SKIN: Negative for: Rashes, Itching HEMATOLOGICAL/LYMPHATIC: Negative for: Easy bruising , Easy bleeding ENDOCRINE: Negative for: Heat or cold intolerance, Excessive sweating, Frequent urination, Frequent thirst PHYSICAL EXAMINATION: Last 3 Encounter BP Readings: Date: BP: 03/04/2019 130/80 02/19/2019 122/69 02/18/2019 135/79 Last 3 Encounter Wt Readings: Date: Wt: 03/04/2019 151.1 kg (333 lb 3.2 oz) 02/18/2019 149.2 kg (329 lb) 02/18/2019 148.6 kg (327 lb 9.6 oz) Last 3 Encounter Pulse Readings: Date: Pulse: 03/04/2019 63 02/19/2019 60 02/18/2019 62 BP 134/78 Pulse 61 Ht 6' 1 (1.85m) Wt 330 lb (149.7kg) BMI 43.55 kg/(m2). GENERAL: alert, cooperative, pleasant, in no acute distress SKIN: warm, dry, no rash. HEENT: NCAT, sclerae anicteric, oval pharynx clear. NECK: supple, no palpable masses, JVP ~7cm H20, carotids 2+ bilaterally with no carotid bruits. CARDIAC: Regular rate and rhythm with no rubs, murmurs, or gallops CHEST: Normal respiratory efforts, lungs clear to auscultation bilaterally. ABDOMEN: (+) bowel sounds, nontender, nondistended, no hepatosplenomegaly, no abdominal bruits EXTREMITIES: no lower extremity edema bilaterally. DP pulses 2+ bilaterally. Femoral pulses 3+ bilaterally with no bruits. No cyanosis. NEURO: Alert and oriented x 3. Grossly normal. Moves all 4 extremities. ___ ___ CARDIAC TESTING: Echo 04/04/16([facility]) IVSd: 1.2 cm? LVIDd: 3.5 cm ? LVIDs: 2.3 cm ? LVPWd: 0.96 cm FS: 34.5 %? Ao root diam: 3.4 cm ? Ao root area: 8.9 cm2 ? LA dimension: 4.1 cm Doppler Measurements AND Calculations MV E max michaela: 74.5 cm/sec? MV dec time: 0.16 sec MV A max michaela: 62.7 cm/sec MV E/A: 1.2 Ao V2 max: 111.3 cm/sec? LV V1 max P.4 mmHg Ao max P.0 mmHg? LV V1 max: 91.8 cm/sec PA V2 max: 123.5 cm/sec PA max P.1 mmHg Study 2D M-Mode, Doppler and Color Flow with Contrast. The left ventricle is normal in size. Mild asymmetric LVH/increased wall thickness is noted. No LVOT obstruction. A contrast agent was used for left ventricular opacification. Normal left ventricular systolic function is noted. Estimated left ventricular ejection fraction is 60%. No regional wall motion abnormalities noted. The right ventricle is normal in size and function. The left atrium is normal in size. Left Atrial Volume Index 19.4 ml/m2. The right atrium is normal in size. Intact atrial septum. The mitral valve is normal in structure and function. There is no mitral regurgitation noted. The tricuspid valve is normal in structure and function. The aortic valve opens well. The aortic valve is trileaflet. No Aortic Stenosis. No aortic regurgitation is present. The pulmonic valve is normal in structure and function. Trace pulmonic valvular regurgitation. The aortic root is normal size. There is no pericardial effusion. Normal diastolic function. Summary The left ventricle is normal in size. Mild asymmetric LVH/increased wall thickness is noted. A contrast agent was used for left ventricular opacification. Estimated left ventricular ejection fraction is 60%. Normal left ventricular systolic function is noted. Normal diastolic function. No LVOT obstruction. Nuclear Stress Test 04/05/16([facility]) The patient was stressed on a treadmill where they attained a maximum ? heart rate of 174 beats per minute which is 93% of the maximum ? predicted value. No evidence of reversible myocardial ischemia. Low risk for ischemia. ? Carotid Ultrasound 04/04/16([facility]) Right: Plaque with no significant ICA spectral Doppler or color flow disturbances; ICA 86/12 cm/sec.??Antegrade vertebral artery flow. Left: Plaque with no significant ICA spectral Doppler or color flow disturbances; ICA 145/28 cm/sec.??Antegrade vertebral artery flow. Conclusions: BILATERAL:??Plaque without significant stenosis (<50%) of the internal carotid artery.??Antegrade vertebral artery flow. ___ ___ LABS: Cholesterol, Total (mg/dL) Date Value 02/18/2019 164 HDL Cholesterol (mg/dL) Date Value 02/18/2019 34 LDL Cholesterol (mg/dL) Date Value 02/18/2019 98 Triglyceride (mg/dL) Date Value 02/18/2019 158 No results found for: INR Hemoglobin (g/dL) Date Value 02/18/2019 16.7 Hematocrit (%) Date Value 02/18/2019 50.0 WBC (k/uL) Date Value 02/18/2019 5.83 Platelet Count (k/uL) Date Value 02/18/2019 240 No results found for: MG AST (U/L) Date Value 02/18/2019 25 ALT (U/L) Date Value 02/18/2019 33 , No results found for: CK, TSH (uU/mL) Date Value 02/18/2019 0.484 , No results found for: PBNP, Hemoglobin A1C (%) Date Value 02/18/2019 5.3 , Glucose (mg/dL) Date Value 02/18/2019 84 Potassium (mmol/L) Date Value 02/18/2019 4.1 Sodium (mmol/L) Date Value 02/18/2019 139 Chloride (mmol/L) Date Value 02/18/2019 102 CO2 (mmol/L) Date Value 02/18/2019 23 Creatinine (mg/dL) Date Value 02/18/2019 0.85 BUN (mg/dL) Date Value 02/18/2019 13 Anion Gap (mmol/L) Date Value 02/18/2019 14 Calcium (mg/dL) Date Value 02/18/2019 9.6 and No components found for: DIG ASSESSMENT/PLAN: Abisai Toribio 38 year old male was seen today in Cardiology SOB, Chest pain, tachycardia - periods awakening SOB ECHO Stress Nuclear 24 hour monitor PFTs follow up in [place] in 6-8 weeks This note was partially generated using [employer] voice recognition system, and there may be some incorrect words, spellings, and punctuation that were not noted in checking the note before saving. Sarah Simon MD [facility] Department of Cardiovascular Medicine [address] [place] [address]. [id number] cc: Kitty Bailey PA-C [address] CNOVon 03-04-2019 CNOV Office Visit (FAMPMA ) -------- THANIAOSWALDOABISAI Lauren ([id number]) 1980 M Date Time Provider Department 03/04/19 8:00 AM ANGIE BAILEY) FAMPMA During your visit today, we recorded the following information about you: Temperature Pulse Respiration Blood pressure 98.4 degrees 63/minute 24/minute 130/80 Weight Height 151.1 kg 1.854 m Kitty Bailey PA-C 03/04/2019 10:19 AM Signed Abisai Toribio is a 38 year old male Patient presents with: Follow Up: follow up from labs. patient states no complaints or concerns. HPI Patient presents today with complaints of: as above. Patient here for f/u on last visit, labs. Discussed that labs were largely normal. Saw GI and underwent EGD on 02/19/19- reflux esophagitis, small hiatal hernia. Was started on Protonix 40mg daily x 8 weeks. States he has not noticed much of a difference or improvement in difficulty swallowing, but is giving medication more time. As far as episodes of gasping for breath, he states he has noticed this has decreased in frequency as well, last episode 3-4 days ago when before it was daily. States overall he is feeling better. Still needs reestablished with cardiology- states his last visit and stress test was 2 years ago, there was potential thickening of one of his valves or heart chavez, he is unsure which. Admits to occasional chest pains x years. Will refer to cardiology so he has a specialist in the area. ROS Review of Systems Constitutional: Negative for chills, fever and unexpected weight change. Respiratory: Positive for shortness of breath. Negative for cough. Cardiovascular: Positive for chest pain and leg swelling. Neurological: Negative for weakness, numbness and headaches. PHYSICAL EXAM BP 130/80 Pulse 63 Temp (Src) 98.4 (Oral) Resp 24 Ht 6' 1 (1.85m) Wt 333 lb 3.2 oz (151.1kg) SpO2 95% BMI 43.97 kg/(m2). Physical Exam Constitutional: He is oriented to person, place, and time. He appears well-developed and well-nourished. HENT: Head: Normocephalic and atraumatic. Cardiovascular: Normal rate, regular rhythm, normal heart sounds and intact distal pulses. No murmur heard. Pulmonary/Chest: Effort normal and breath sounds normal. He has no wheezes. He has no rales. + diminished, likely due to body habitus Neurological: He is alert and oriented to person, place, and time. Skin: Skin is warm and dry. Capillary refill takes less than 2 seconds. Psychiatric: He has a normal mood and affect. PAST MEDICAL HISTORY Diagnosis Date - HTN (hypertension) - Migraine - Sleep apnea PAST SURGICAL HISTORY Procedure Laterality Date - HERNIA REPAIR 2012 FAMILY HISTORY Problem Relation Age of Onset - Diabetes Mother - Diabetes Maternal Grandmother - Diabetes Maternal Grandfather - Cancer Maternal Grandfather 70 colon - Cancer Paternal Grandfather 60 colon - other (colon polyps) Father - other (colon polyps) Brother Patient has no known allergies. Current Outpatient Medications: Ibuprofen 200 mg cap Take 800 mg by mouth. pantoprazole DR (PROTONIX) 40 mg tablet Take 1 tablet by mouth once daily. cetirizine HCl/pseudoephedrine (ZYRTEC-D ORAL) Take by mouth once daily. ranitidine (ZANTAC) 150 mg tablet Take 150 mg by mouth daily at bedtime. fluticasone propionate (FLONASE NASAL) Use in the nose once daily. No current facility-administered medications for this visit. Social History Socioeconomic History Marital status: Spouse name: Not on file Number of children: 1 Years of education: Not on file Highest education level: Not on file Occupational History Occupation: TEACHER Employer: [employer] Social Needs Financial resource strain: Not on file Food insecurity: Worry: Not on file Inability: Not on file Transportation needs: Medical: Not on file Non-medical: Not on file Tobacco Use Smoking status: Former Smoker Types: Cigarettes Smokeless tobacco: Never Used Substance and Sexual Activity Alcohol use: Not Currently Frequency: Never Drug use: Never Sexual activity: Not on file Lifestyle Physical activity: Days per week: Not on file Minutes per session: Not on file Stress: Not on file Relationships Social connections: Talks on phone: Not on file Gets together: Not on file Attends latter day service: Not on file Active member of club or organization: Not on file Attends meetings of clubs or organizations: Not on file Relationship status: Not on file Intimate partner violence: Fear of current or ex partner: Not on file Emotionally abused: Not on file Physically abused: Not on file Forced sexual activity: Not on file Other Topics Concerns: Not on file Social History Narrative Not on file ASSESSMENT AND PLAN: Abisai was seen today for follow up. Diagnoses and all orders for this visit: GERD with esophagitis Breathing difficulty - CONSULT TO CARDIOLOGY Cardiac hypertrophy - CONSULT TO CARDIOLOGY Chest pain, unspecified type - CONSULT TO CARDIOLOGY - Patient states episodes of breathing pauses have seemingly improved since our last visit, becoming much less frequent, possible anxiety component. However, would like to r/o cardiac cause given occasional CP, associated lightheadedness. Was established with cardiology in [place], will reestablish care closer to home. - Continue Protonix and keep f/u with GI. - F/u after visit with cardiology. Angie Bailey PA-C Referring Provider: ANGIE BAILEY (KERVIN) [[id number]] Allergies As of Date: 03/04/2019 (No Known Allergies) Date Reviewed: 03/04/2019 Reviewed by: Angie Braswell) - Fully Assessed Reason for Visit: Follow Up [171] Cmt: follow up from labs. patient states no complaints or concerns. Primary Visit Diagnosis:GERD with esophagitis [K21.0] Other Visit Diagnoses:Breathing difficulty [R06.89] Cardiac hypertrophy [I51.7] Chest pain, unspecified type [R07.9] Order(s):CONSULT TO CARDIOLOGY [9004] Order #: [id number]: 1 Prescriptions as of 03/04/2019 Sig: IBUPROFEN 200 MG CAPSULE Take 800 mg by mouth. PANTOPRAZOLE 40 MG TABLET,DEL* Take 1 tablet by mouth once d* ZYRTEC-D ORAL Take by mouth once daily. RANITIDINE 150 MG TABLET Take 150 mg by mouth daily at* FLONASE NASAL Use in the nose once daily. Problem List As Of Date 03/04/2019 Noted Resolved ISRRAEL (obstructive sleep apnea) [G47.33] INVALID FOR* GERD with esophagitis [K21.0] INVALID FOR* Encounter Status:Closed by ANGIE BAILEY on 03/04/19 Normal [facility] PROGRESSon 03-04-2019 PROGRESS HNO ID: [id number] Author: Angie Braswell) Service: ? Author Type: Physician [employer] Dies Type: Progress Notes Filed: 03/04/2019 10:19 AM Note Text: Abisai Toribio is a 38 year old male Patient presents with: Follow Up: follow up from labs. patient states no complaints or concerns. HPI Patient presents today with complaints of: as above. Patient here for f/u on last visit, labs. Discussed that labs were largely normal. Saw GI and underwent EGD on 02/19/19- reflux esophagitis, small hiatal hernia. Was started on Protonix 40mg daily x 8 weeks. States he has not noticed much of a difference or improvement in difficulty swallowing, but is giving medication more time. As far as episodes of gasping for breath, he states he has noticed this has decreased in frequency as well, last episode 3-4 days ago when before it was daily. States overall he is feeling better. Still needs reestablished with cardiology- states his last visit and stress test was 2 years ago, there was potential thickening of one of his valves or heart chavez, he is unsure which. Admits to occasional chest pains x years. Will refer to cardiology so he has a specialist in the area. ROS Review of Systems Constitutional: Negative for chills, fever and unexpected weight change. Respiratory: Positive for shortness of breath. Negative for cough. Cardiovascular: Positive for chest pain and leg swelling. Neurological: Negative for weakness, numbness and headaches. PHYSICAL EXAM BP 130/80 Pulse 63 Temp (Src) 98.4 (Oral) Resp 24 Ht 6' 1 (1.85m) Wt 333 lb 3.2 oz (151.1kg) SpO2 95% BMI 43.97 kg/(m2). Physical Exam Constitutional: He is oriented to person, place, and time. He appears well-developed and well-nourished. HENT: Head: Normocephalic and atraumatic. Cardiovascular: Normal rate, regular rhythm, normal heart sounds and intact distal pulses. No murmur heard. Pulmonary/Chest: Effort normal and breath sounds normal. He has no wheezes. He has no rales. + diminished, likely due to body habitus Neurological: He is alert and oriented to person, place, and time. Skin: Skin is warm and dry. Capillary refill takes less than 2 seconds. Psychiatric: He has a normal mood and affect. PAST MEDICAL HISTORY Diagnosis Date - HTN (hypertension) - Migraine - Sleep apnea PAST SURGICAL HISTORY Procedure Laterality Date - HERNIA REPAIR 2012 FAMILY HISTORY Problem Relation Age of Onset - Diabetes Mother - Diabetes Maternal Grandmother - Diabetes Maternal Grandfather - Cancer Maternal Grandfather 70 colon - Cancer Paternal Grandfather 60 colon - other (colon polyps) Father - other (colon polyps) Brother Patient has no known allergies. Current Outpatient Medications: Ibuprofen 200 mg cap Take 800 mg by mouth. pantoprazole DR (PROTONIX) 40 mg tablet Take 1 tablet by mouth once daily. cetirizine HCl/pseudoephedrine (ZYRTEC-D ORAL) Take by mouth once daily. ranitidine (ZANTAC) 150 mg tablet Take 150 mg by mouth daily at bedtime. fluticasone propionate (FLONASE NASAL) Use in the nose once daily. No current facility-administered medications for this visit. Social History Socioeconomic History Marital status: Spouse name: Not on file Number of children: 1 Years of education: Not on file Highest education level: Not on file Occupational History Occupation: TEACHER Employer: [employer] Social Needs Financial resource strain: Not on file Food insecurity: Worry: Not on file Inability: Not on file Transportation needs: Medical: Not on file Non-medical: Not on file Tobacco Use Smoking status: Former Smoker Types: Cigarettes Smokeless tobacco: Never Used Substance and Sexual Activity Alcohol use: Not Currently Frequency: Never Drug use: Never Sexual activity: Not on file Lifestyle Physical activity: Days per week: Not on file Minutes per session: Not on file Stress: Not on file Relationships Social connections: Talks on phone: Not on file Gets together: Not on file Attends latter day service: Not on file Active member of club or organization: Not on file Attends meetings of clubs or organizations: Not on file Relationship status: Not on file Intimate partner violence: Fear of current or ex partner: Not on file Emotionally abused: Not on file Physically abused: Not on file Forced sexual activity: Not on file Other Topics Concerns: Not on file Social History Narrative Not on file ASSESSMENT AND PLAN: Abisai was seen today for follow up. Diagnoses and all orders for this visit: GERD with esophagitis Breathing difficulty - CONSULT TO CARDIOLOGY Cardiac hypertrophy - CONSULT TO CARDIOLOGY Chest pain, unspecified type - CONSULT TO CARDIOLOGY - Patient states episodes of breathing pauses have seemingly improved since our last visit, becoming much less frequent, possible anxiety component. However, would like to r/o cardiac cause given occasional CP, associated lightheadedness. Was established with cardiology in [place], will reestablish care closer to home. - Continue Protonix and keep f/u with GI. - F/u after visit with cardiology. Angie Bailey PA-C Normal [facility] EKGon 12-04-2017 EKG EKGVentric ular Rate : 68 BPMAtrial Rate : 68 BPMP-R Interval : 166 msQRS Duration : 78 msQ-T Interval : 402 msQTC Calculation(Bezet) : 427 msCalculated P Waverly : 23 degreesCalculated R Waverly : 59 degreesCalculated T Waverly : 61 degreesDiagnosis:Normal sinus rhythmNonspecific ST and T wave abnormalityAbnormal ECGConfirmed by TEX VASQUEZ ([id number]) on 12/09/2017 7:39:25 AM [facility] TROPONIN Ton 12-04-2017 Troponin T.cardiac mass conc Normal 0.0-0.1 [facility] Comment on above: Result Comment: 0.01 LESS THANPerformed at [facility] [address] [place] [address] Performed By: #### T ROP ####[address],[place] [address] Troponin T.cardiac mass conc Normal 0.0-0.1 [facility] Comment on above: Result Comment: 0.01 LESS THANPerformed at [facility] [address] [place] [address] Performed By: #### T ROP ####[address],[place] [address] BASIC METABOLIC PANELon 11-06 Anion gap 13 mmol/L Normal 0-19 [facility] Comment on above: Performed By: #### B MP ####[address],[place] [address] BUN/Creatinine Ratio 13.8 RATIO Normal 8-21 [facility] Comment on above: Performed By: #### B MP ####[address],[place] [address] Calcium 9.5 mg/dL Normal 8.5-10.4 [facility] Comment on above: Performed By: #### B MP ####[address],[place] [address] Chloride 98 mmol/L Normal 97-107 [facility] Comment on above: Performed By: #### B MP ####[address],[place] [address] CO2 28 mmol/L Normal 24-31 [facility] Comment on above: Performed By: #### B MP ####[address],[place] [address] Creatinine 0.8 mg/dL Normal 0.4-1.6 [facility] Comment on above: Performed By: #### B MP ####[address],[place] [address] eGFR (MDRD) Normal [facility] Comment on above: Result Comment: 116G FR ml/min/1.73m2 Stage -----90 160-89 230-59 315-29 4<15 5For -Americans, multiply EGFR result by 1.210Calculation not validated for patients under 18 years of age.Performed at [facility] [place][Note 2] [address] [place] [address] Performed By: #### B MP ####[address],[place] [address] Glucose mass conc 104 mg/dL High 65-99 [facility] Comment on above: Performed By: #### B MP ####[address],[place] [address] Potassium molar conc 3.8 mmol/L Normal 3.4-5.1 [facility] Comment on above: Performed By: #### B MP ####[address],[place] [address] Sodium 139 mmol/L Normal 133-145 [facility] Comment on above: Performed By: #### B MP ####[address],[place] [address] Urea nitrogen 11 mg/dL Normal 8-25 [facility] Comment on above: Performed By: #### B MP ####[address],[place] [address] CBC with Diffon 12-03-2017 Platelets 235 10*3/uL Normal 150-450 [facility] Comment on above: Performed By: #### C BCD ####[address],[place] [address] AB IMMATURE NEUT 0.04 K/UL Normal 0.0-0.1 [facility] Comment on above: Performed By: #### C BCD ####[address],[place] [address] ABS BASO 0.05 K/UL Normal 0.00-0.22 [facility] Comment on above: Performed By: #### C BCD ####[address],[place] [address] ABS EOS 0.22 K/UL Normal 0-0.45 [facility] Comment on above: Performed By: #### C BCD ####[address],[place] [address] ABS.NEUT.CALCULATE D Normal [facility] Comment on above: Result Comment: 4.41 Performed at [facility] [place][Note 2] [address] [facility] [place] [address] Performed By: #### C BCD ####[address],[place] [address] Basophils/100 WBC Auto (Bld) 0.60 % Normal 0-1 [facility] Comment on above: Performed By: #### C BCD ####[address],[place] [address] DIFF TYPE AUTO DIFF Normal [facility] Comment on above: Performed By: #### C BCD ####[address],[place] [address] Eosinophils/100 leukocytes 2.50 % Normal 0-3 [facility] Comment on above: Performed By: #### C BCD ####[address],[place] [address] Erythrocyte distribution width Auto Ratio (RBC) 11.7 % Normal 11.7-15.0 [facility] Comment on above: Performed By: #### C BCD ####[address],[place] [address] Erythrocytes (RBC) 0 /100 WBC Normal 0 [facility] Comment on above: Performed By: #### C BCD ####[address],[place] [address] Erythrocytes (RBC) 5.08 M/UL Normal 4.5-5.5 [facility] Comment on above: Performed By: #### C BCD ####[address],[place] [address] Hematocrit (HCT) 46.4 % Normal 41-50 [facility] Comment on above: Performed By: #### C BCD ####[address],[place] [address] Hemoglobin mass conc (Bld) 16.1 g/dL Normal 13.5-16.5 [facility] Comment on above: Performed By: #### C BCD ####[address],[place] [address] IMMATURE NEUT % 0.50 % Normal 0.0-1.0 [facility] Comment on above: Performed By: #### C BCD ####[address],[place] [address] Lymphocytes 3.18 10*3/uL Normal 1.2-3.2 [facility] Comment on above: Performed By: #### C BCD ####[address],[place] [address] Lymphocytes/100 leukocytes 36.70 % Normal 20-40 [facility] Comment on above: Performed By: #### C BCD ####[address],[place] [address] MCH 31.7 pg Normal 26-34 [facility] Comment on above: Performed By: #### C BCD ####[address],[place] [address] MCHC mass conc (RBC) 34.7 % Normal 31-37 [facility] Comment on above: Performed By: #### C BCD ####[address],[place] [address] MCV 91.3 fL Normal 80-100 [facility] Comment on above: Performed By: #### C BCD ####[address],[place] [address] MEAN PLT VOL 9.8 CU Normal 7.0-12.6 [facility] Comment on above: Performed By: #### C BCD ####[address],[place] [address] Monocytes 0.76 10*3/uL Normal 0-0.8 [facility] Comment on above: Performed By: #### C BCD ####[address],[place] [address] Monocytes/100 leukocytes 8.80 % High 0-8 [facility] Comment on above: Performed By: #### C BCD ####[address],[place] [address] Neutrophils 4.41 10*3/uL Normal 1.8-7.7 [facility] Comment on above: Performed By: #### C BCD ####[address],[place] [address] Neutrophils/100 leukocytes 50.90 % Normal 50-70 [facility] Comment on above: Performed By: #### C BCD ####[address],[place] [address] RDW-SD 39.4 FL Normal 37.0-54.0 [facility] Comment on above: Performed By: #### C BCD ####[address],[place] [address] WBC (Leukocytes) 8.7 10*3/uL Normal 4.5-11.0 [facility] Comment on above: Performed By: #### C BCD ####[address],[place] [address] CHEST PORTABLEon 12-03-2017 CHEST PORTABLE *FINAL Date of Service: 12/03/2017 20:19 Adm #: [id number] Dr:LUIZ BA Signoff Dr: LUIZ BALDERASUPROCEDURE: CHEST PORTABLE - IXR [id number] FOR EXAM: Chest Pain RESULT: Clinical Information: Chest pain. Number of films: One portable. Comparison study: None. The study is limited due to overlying artifacts and due to rotation.The cardiomediastinal silhouette is within normal limits for the technique.There is no pneumothorax, confluent infiltrates or significant effusion.The osseous structures are unremarkable. Impression: Allowing for the aforementioned limitation, unremarkable chest. This report has been produced using speech recognition. Original Interpreting Physician: LUIZ BA M.D.Original Transcribed by/Date: PSCB Dec 03 2017 9:05POriginal Electronically Signed by/Date: LUIZ BA M.D. Dec 03 2017 9:05P Addendum Interpreting Physician: Addendum Transcribed by/Date: NO ADDENDUMAddendum Electronically Signed by/Date: [facility] Consulton 12-03-2017 Consult [facility] EKGon 12-03-2017 EKG EKGVentric ular Rate : 73 BPMAtrial Rate : 73 BPMP-R Interval : 152 msQRS Duration : 76 msQ-T Interval : 362 msQTC Calculation(Bezet) : 398 msCalculated P Waverly : 22 degreesCalculated R Waverly : 56 degreesCalculated T Waverly : 60 degreesDiagnosis:Normal sinus rhythmNonspecific ST abnormalityAbnormal ECGNo previous ECGs availableConfirmed by TEX VASQUEZ ([id number]) on 12/05/2017 8:32:10 AM [facility] TROPONIN Ton 12-03-2017 Troponin T.cardiac mass conc Normal 0.0-0.1 [facility] Comment on above: Result Comment: 0.01 LESS THANPerformed at [facility] [address] [facility] [address] Performed By: #### T ROP ####[address],[place] [address] Vital Signs Date Time Vital Sign Value Performing Clinician Gus holguin 08-07-2023 07:28-0500 Body height 188 cm Rozina Chamberlain MD Work Phone: [facility] [employer] [facility] 08-07-2023 07:28-0500 Body mass index (BMI) [Ratio] 42.5 kg/m2 Rozina Chamberlain MD Work Phone: [facility] 08-07-2023 07:28-0500 Body weight 150.14 kg Rozina Chamberlain MD Work Phone: [facility] 08-07-2023 07:28-0500 Diastolic blood pressure 90 mm[Hg] Rozina Chamberlain MD Work Phone: [facility] 08-07-2023 07:28-0500 Heart rate 69 /min Rozina Chamberlain MD Work Phone: [facility] 08-07-2023 07:28-0500 Respiratory rate 18 /min Rozina Chamberlain MD Work Phone: [facility] 08-07-2023 07:28-0500 Systolic blood pressure 140 mm[Hg] Rozina Chamberlain MD Work Phone: [facility] Encounters Encounter Date Encounter Type Care Provider Facility Start: 08-07-2023 End: 08-07-2023 [facility] Start: 08-07-2023 End: 08-07-2023 Office outpatient new 45 minutes Rozina Chamberlain MD Work Phone: [facility] Comment on above: Fibromyalgia (Primar y Dx); Multiple joint pain Start: 12-03-2017 End: 12-04-2017 Ambulatory NONE PCP Facility:UNKNOWN Procedures Date Procedure Procedure Detail Performing Clinician Start: 07-19-2023 Adult depression screening assessment Rozina Chamberlain MD Work Phone: Plan of Treatment Date Care Activity Detail Author Start: 08-07-2024 Adult BMI Screening Adult BMI Screen ing [facility] Start: 07-19-2024 Depression Screening Depression Scre ening [facility] Start: 07-19-2024 Tobacco Screening Tobacco Screening [facility] Start: 11-15-2023 End: 11-15-2023 Patient encounter procedure 11/15/2023 11:15 AM EDT Office Visit [facility] [address] [address] [place] [id number] Rozina Chamberlain MD [address] [address] [facility] Start: 08-23-2023 End: 08-23-2023 Patient encounter procedure 08/23/2023 4:10 PM EST Office Visit [facility] Internal Medicine - Family Medicine [address] [place] [address] Charles Cueva, DO [address] [facility] [place] [address] [facility] - Family Medicine Start: 08-07-2023 End: 08-07-2024 CK Total CK Total Lab Routine Fibromyalgia Expected: 08/07/2023 (Approximate), Expires: 08/07/2024 [facility] Comment on above: Expected: 08/07/2023 (Approximate), Expires: 08/07/2024 Start: 08-07-2023 End: 08-07-2024 Cyanocobalamin vitamin b-12 Vitamin B12 Lab Routine Fibromyalgia Expected: 08/07/2023, Expires: 08/07/2024 [facility] Comment on above: Expected: 08/07/2023 , Expires: 08/07/2024 Start: 08-07-2023 End: 08-07-2024 LDH LDH Lab Routine Fibromyalgia Expected: 08/07/2023 (Approximate), Expires: 08/07/2024 [facility] Comment on above: Expected: 08/07/2023 (Approximate), Expires: 08/07/2024 Start: 08-07-2023 End: 08-07-2024 Thyrotropin [Units/volume] in Serum or Plasma TSH Lab Routine Fibromyalgia Expected: 08/07/2023, Expires: 08/07/2024 [facility] Comment on above: Expected: 08/07/2023 , Expires: 08/07/2024 Start: 08-07-2023 End: 08-07-2024 Vitamin D 25 hydroxy Vitamin D 25 hydroxy Lab Routine Fibromyalgia Expected: 08/07/2023, Expires: 08/07/2024 [facility] Work Phone: Comment on above: Expected: 08/07/2023 , Expires: 08/07/2024 Start: 04-05-2010 DTaP,Tdap and Td Vaccines (6 - Tdap) DTaP,Tdap and Td Vaccines (6 - Tdap) [facility] Start: 1999 Adult BMI Follow Up Plan Adult BMI Follow Up Plan [facility] Immunizations Immunization Date Immunization Notes Care Provider Sharee lopes 06-02-2023 Seasonal, quadrivale nt, recombinant, injectable influenza vaccine, preservative free Rozina Chamberlain MD Work Phone: [facility] 07-06-2021 influenza, injectabl e, quadrivalent, preservative free Rozina Chamberlain MD Work Phone: [facility] 05-19-2020 influenza, injectabl e, quadrivalent, preservative free Rozina Chamberlain MD Work Phone: [facility] 06-07-2019 influenza, injectabl e, quadrivalent, contains preservative Rozina Chamberlain MD Work Phone: [facility] 10-26-2000 hepatitis B vaccine, pediatric or pediatric/adolescent dosage Rozina Chamberlain MD Work Phone: [facility] 07-09-2000 hepatitis B vaccine, pediatric or pediatric/adolescent dosage Rozina Chamberlain MD Work Phone: [facility] 04-05-2000 hepatitis B vaccine, pediatric or pediatric/adolescent dosage Rozina Chamberlain MD Work Phone: [facility] 04-05-2000 TD(adult) unspecifie d formulation Rozina Chamberlain MD Work Phone: [facility] 07-13-1996 diphtheria, tetanus toxoids and pertussis vaccine Rozina Chamberlain MD Work Phone: [facility] 07-13-1986 trivalent poliovirus vaccine, live, oral Rozina Chamberlain MD Work Phone: [facility] 08-24-1982 measles, mumps and rubella virus vaccine Rozina Chamberlain MD Work Phone: [facility] 08-24-1982 trivalent poliovirus vaccine, live, oral Rozina Chamberlain MD Work Phone: [facility] 1981 diphtheria, tetanus toxoids and pertussis vaccine Rozina Chamberlain MD Work Phone: [facility] 1981 diphtheria, tetanus toxoids and pertussis vaccine Rozina Chamberlain MD Work Phone: [facility] 1981 diphtheria, tetanus toxoids and pertussis vaccine Rozina Chamberlain MD Work Phone: [facility] 1981 trivalent poliovirus vaccine, live, oral Rozina Chamberlain MD Work Phone: [facility] Payers Date Payer Category Payer Unknown [id number] 2020 Unknown ASHUTOSH SORENSEN (PPO) [id number] 2020-[facility] [phone] [address] [place] [address] [id number] 1981 Unknown [id number] Unknown [id number] Social History Date Type Detail Facility Start: 06-14-2023 Tobacco smoking stat [facility] Ex-smoker [facility] End: 06-14-2022 History of tobacco use Current smoker [facility] End: 06-14-2022 History of tobacco use Cigarette Smoker [facility] Start: 06-14-2023 End: 07-19-2023 Cigarettes smoked current (pack per day) - Reported 0.2 [facility] Start: 06-14-2023 Tobacco use and exposure Smoke less tobacco non-user [facility] Start: 08-07-2023 Alcohol intake Current drinke r of alcohol (finding) [facility] Start: 06-14-2023 End: 07-19-2023 [employer] [facility] Has the [employer], or [employer] threatened to shut off services in your home in past 12Mo No [facility] Do you belong to any clubs or organizations such as bahai groups, unions, fraternal or athletic groups, or school groups? Yes [facility] Are you now , , , , never or living with a partner? [facility] How often to you hav e a drink containing alcohol? Monthly or less [facility] How many standard dr inks containing alcohol do you have on a typical day? 1 or 2 [facility] How often do you hav e 6 or more drinks on 1 occasion? Never [facility] How hard is it for y ou to pay for the very basics like food, housing, medical care, and heating Not hard at all [facility] Do you feel stress - tense, restless, nervous, or anxious, or unable to sleep at night because your mind is troubled all the time - these days [OSQ] Not at all [facility] Start: 06-14-2023 Alcohol Comment seldom [facility] Start: 1980 Sex Assigned At Not on file [facility] History of Present illness Narrative 08-07-2023 Rozina Chamberlain MD - 08/07/2023 7:45 AM EST Note Date & Type Note Facility 08-07-2023 History of Present illness Narrative Images from the original note were not included. [address] [id number] Date of Service: 08/07/2023 2 Subjective: Abisai Toribio is a 43 y.o. male who presents today for evaluation joints pain. Patient is seen at the request of Charles Cueva DO. This is the 1st clinic visit for this 43-year-old male patient who has been referred to us with joints pain Patient symptoms started in 2017 with joint pain involving the wide spread joints of the hands, knees, ankles,neck, hips, shoulders, feet in addition to swelling ,he has fatigability, poor sleep, feeling tired and exhausted, In addition she has been having neck pain Lab tests done previously 06/16/2023 both rheumatoid factor and CCP and CHARLES negative, ESR CRP normal, chemistry normal. Past surgical knee arthroscopy Past medical negative Smoking history 5-10/day Family history negative The following portions of the patient's history were reviewed and updated as appropriate: allergies, current medications, past family history, past medical history, past social history, past surgical history and problem list. Review of Systems: Review of Systems Constitutional: Positive for fatigue (02/12). Negative for activity change, appetite change, fever and unexpected weight change. HENT: Negative for mouth sores, rhinorrhea and sneezing. Eyes: Negative for photophobia, pain, redness and visual disturbance. Respiratory: Negative for cough, shortness of breath and wheezing. Cardiovascular: Negative for chest pain and palpitations. Gastrointestinal: Negative for abdominal pain, blood in stool, constipation, diarrhea, nausea and vomiting. Endocrine: Negative for cold intolerance. Genitourinary: Negative for dysuria, frequency, hematuria and urgency. Musculoskeletal: Positive for arthralgias, myalgias and neck pain. Negative for back pain, gait problem, joint swelling and neck stiffness. Muscle muscle twitching Diffuse musculoskeletal pain , feels tired in the morning, exhausted and easy fatigability during daytime Skin: Negative for color change, pallor and rash. Allergic/Immunologic: Negative. Neurological: Positive for numbness (hands and feet with tinggling) and headaches. Negative for seizures, syncope and weakness. Hematological: Negative. Psychiatric/Behavioral: Positive for sleep disturbance. Negative for dysphoric mood. Poor sleep Current Outpatient Medications Medication Sig Dispense Refill fluticasone propionate (FLONASE) 50 mcg/actuation nasal spray Administer into each nostril daily. ibuprofen 200 mg capsule Take 800 mg by mouth. loratadine (CLARITIN) 10 mg tablet phentermine 37.5 MG capsule Take 1 capsule (37.5 mg total) by mouth every morning before breakfast. 30 capsule 0 amitriptyline (ELAVIL) 10 mg tablet One capsule at 8 PM each night 30 tablet 5 tiZANidine (ZANAFLEX) 2 mg tablet One tab at 8:00 p.m.each night 30 tablet 5 No current facility-administered medications for this visit. Physical Exam: Physical Exam Vitals and nursing note reviewed. Constitutional: Appearance: He is well-developed. HENT: Head: Normocephalic and atraumatic. Right Ear: External ear normal. Left Ear: External ear normal. Nose: Nose normal. Eyes: Conjunctiva/sclera: Conjunctivae normal. Pupils: Pupils are equal, round, and reactive to light. Neck: Thyroid: No thyromegaly. Vascular: No JVD. Cardiovascular: Rate and Rhythm: Normal rate and regular rhythm. Heart sounds: Normal heart sounds. No murmur heard. No friction rub. No gallop. Pulmonary: Effort: Pulmonary effort is normal. Breath sounds: Normal breath sounds. No stridor. Chest: Chest wall: No tenderness. Abdominal: General: There is no distension. Palpations: Abdomen is soft. There is no mass. Tenderness: There is no abdominal tenderness. Musculoskeletal: General: No tenderness or deformity. Normal range of motion. Cervical back: Normal range of motion and neck supple. Comments: Symmetrical tender trigger points No synovitis Lymphadenopathy: Cervical: No cervical adenopathy. Skin: General: Skin is warm and dry. Coloration: Skin is not pale. Findings: No erythema or rash. Neurological: Mental Status: He is alert and oriented to person, place, and time. Cranial Nerves: No cranial nerve deficit. Coordination: Coordination normal. Psychiatric: Behavior: Behavior normal. Thought Content: Thought content normal. FOX-28 (If Applicable) There is currently no information documented on the homunculus. Go to the Rheumatology activity and complete the homunculus joint exam. FOX-28 (CRP): -- FOX-28 (ESR): -- Tender (FOX-28): -- Swollen (FOX-28): -- BP 140/90 Pulse 69 Resp 18 Ht 188 cm (6' 2 ) Wt (!) 150.1 kg (331 lb) BMI 42.50 kg/m : reviewed Labs and Imaging: reviewed and discussed with the patient during the visit.I Lab Results Component Value Date WBC 8.1 04/03/2016 HGB 15.5 04/03/2016 HCT 44.6 04/03/2016 MCV 90 04/03/2016 CRP 0.1 06/16/2023 GFR >60 04/04/2016 GFR >60 04/04/2016 AST 22 06/16/2023 Imaging: Assessment and Plan: Abisai Toribio is a 43 y.o. male patient with: 1. Fibromyalgia - Vitamin D 25 hydroxy; Future - Vitamin B12; Future - TSH; Future - CK Total; Future - LDH; Future - tiZANidine (ZANAFLEX) 2 mg tablet; One tab at 8:00 p.m.each night Dispense: 30 tablet; Refill: 5 - amitriptyline (ELAVIL) 10 mg tablet; One capsule at 8 PM each night Dispense: 30 tablet; Refill: 5 2. Multiple joint pain - Ambulatory referral to Rheumatology At this point I explained to the patient that he does have fibromyalgia, I have discussed with the patient the nature of her disease, I have explained to him that there is no evidence at this time of inflammatory condition or connective tissue disease. I have discussed with him the pertinent laboratory studies that might be appropriate in his case at this time, and therapeutic options has been discussed and these includes stretching exercise, aerobic exercises, and medications options. I am starting patient on the following medications at this time elavil,Zanaflex. The nature of him illness was explained fully, as she was able to understand RTC 1 month Total [id number] time was 35 minutes with more than 50% of the visit spent counseling and discussing diagnostic or treatment recommendations, prognosis, risks and benefits of management options, instructions, compliance or risk-factor reduction. This note was created with the assistance of a speech recognition program. While intending to generate a timely document that accurately reflects the content of the visit, no guarantee can be provided that every grammatical or spelling mistake has been or will be identified or corrected. Thank you for your understanding. [facility] Rheumatology Dr. Rozina Chamberlain MD [address] [address] [place] [address] Office: [phone] documented in this encounter [facility] Evaluation note Note Date & Type Note Facility Evaluation note Diagnosis Fibromyalgia- Primary Unspecified myalgia and myositis Multiple joint pain Pain in joint, multiple sites documented in this encounter [facility] [employer] Instructions Note Date & Type Note Facility Instructions Not on filedocumented in this en counter [facility] Reason for visit Narrative Consultation (Routine) - Pending Review Note Date & Type Note Facility Reason for visit Narrative Specialty Diagnoses / Procedures Referred By Shay lauren Referred To Contact Rheumatology Diagnoses Multiple joint pain Charles Cueva, DO [address] [facility], [facility] [address] [place] [id number] Rozina Chamberlain MD [address] [facility] [address] [place] [address] Referral ID Status Reason Start Date Expiration Date Visits Requested Visits Authorized [id number] Pending Review Specialty Services Required 3 06/18/2024 1 1 [facility] Summary Purpose Family History No Family History Records FoundNo Family History Records FoundNo Family History Records FoundNo Family History Records Found Advance Directives No Advanced Directives Records FoundNo Advanced Directives Records FoundNo Advanced Directives Records FoundNo Advanced Directives Records Found Additional Source Comments (unrecognized sect ion and content) No Status Records FoundNo Status Records FoundNo Status Records FoundNo Status Records Found INFORMATION SOURCE (unrecogn ized section and content) DATE CREATED AUTHOR 01/23/2018 [facility] DATE CREATED AUTHOR AUTHOR'S ORGANIZ ATION 07/19/2019 [facility] DATE CREATED AUTHOR AUTHOR'S ORGANIZ ATION 02/27/2020 [facility] DATE CREATED AUTHOR AUTHOR'S ORGANIZ ATION 08/07/2023 [facility] Care Teams (unrecognized sec tion and content) [employer] Technician Relationship Specialty Start Date End Date Charles Cueva DO [address] [facility], [facility] [place] [address] PCP - General Family Medicine 06/14/23 FOR RECORDS PERTAINING TO PATIENTS WHO ARE OR HAVE BEEN ENROLLED IN A CHEMICAL DEPENDENCY/SUBSTANCEABUSE PROGRAM, SOME INFORMATION MAY BE OMITTED. This clinical summary was aggregated from multiple sources. Caution should be exercised in using it in the provision of clinical care. This summary normalizes information from multiple sources, and as a consequence, information in this document may materially change the coding, format and clinical context of patient data. In addition, data may be omitted in some cases. CLINICAL DECISIONS SHOULD BE BASED ON THE PRIMARY CLINICAL RECORDS. [facility]. provides no warranty or guarantee of the accuracy or completeness of information in this document.
== END 2023-08-07 20:50 | disposition home or self-care (01) ==
LOC: SLEEP 20:50
PROVIDERS: PCP Internal Medicine; Visit Provider Internal Medicine
DX: G47.33 Obstructive sleep apnea (adult) (pediatric) (principal)
CPT/HCPCS: 95811